=== PATIENT | female | born 1990 | race Caucasian/White ===

== ENCOUNTER 2022-09-30 17:58 | Outpatient (CLI) | payer BC, SELFPAY ==
[2022-10-04 04:34] LABS: FSH 3.1 mIU/mL (***); LH 3.6 mIU/mL (***)
[2022-10-07 10:53] LABS: Testosterone Total 36 ng/dL (2-45)
[2022-10-09 20:05] LABS: Estradiol, Ultrasensitive 117 pg/mL
== END 2022-09-30 17:59 | disposition home or self-care (01) ==
LOC: ANHLAB 18:00
PROVIDERS: PCP Obstetrics & Gynecology; Visit Provider Student in an Organized Health Care Education/Training Program
DX: L68.0 Hirsutism (principal); R30.0 Dysuria
CPT/HCPCS: 36415; 82670; 83001; 83002; 83498; 84403; 84443; 87086

== ENCOUNTER 2023-07-24 15:46 | Outpatient (CLI) | payer BC, SELFPAY ==
--- NOTE | ~2023-07-24 | US_ITS ---
Pelvic ultrasound. Clinical History: First trimester , establish dates and viability Technique: Realtime transabdominal and transvaginal scanning of the pelvis was performed. Color flow Doppler and Doppler spectral analysis were performed. Findings: The uterus is anteverted, and contains a diamniotic, dichorionic intrauterine twin gestatio n. Twin A demonstrates crown-rump length of 2.4 cm, consistent with estimated gestational age of 9 we eks 1 day. heart rate is 149 bpm. Twin B demonstrates crown-rump length of 2.6 cm, consistent w ith estimated gestational age of 9 weeks 3 days, with heart rate of 167 bpm. Small subchronic h emorrhage present measuring 1.5 cm in maximum diameter.. The right ovary is not visualized. No significant right ovarian or adnexal mass is seen. The left ovary measures 3.2 x 2.5 x 2.5 cm. No significant left ovarian or adnexal mass is seen. There is no evidence of free fluid in the cul de sac. Impression: Live, twin intrauterine gestation, as detailed above, with estimated gestational ages of 9 weeks 1 da y and 9 weeks 3 days, with positive cardiac activity. Small subchronic hemorrhage, as noted above. Reviewed, dictated and finalized at location M. IMMER Impression: Live, twin intrauterine gestation, as detailed above, with estimated gestationa l ages of 9 weeks 1 day and 9 weeks 3 days, with positive cardiac activity. Small subchronic hemorrhage, as noted above.
== END 2023-07-24 15:47 ==
PROVIDERS: PCP Student in an Organized Health Care Education/Training Program; Visit Provider Student in an Organized Health Care Education/Training Program
DX: O46.90 Antepartum hemorrhage, unspecified, unspecified trimester (principal); N94.89 Other specified conditions associated with female genital organs and menstrual cycle; Z3A.00 Weeks of gestation of pregnancy not specified
CPT/HCPCS: 76801; 76817

== ENCOUNTER 2023-08-05 11:49 | Outpatient (CLI) | payer BC, SELFPAY ==
[2023-08-05 12:37] LABS: Basophils Percent Auto 0.4 % (0.2-1.2); Eosinophils Absolute Auto 0.1 K/mm3 (0-0.3); Hematocrit 43.8 % (37.0-47.0); Hemoglobin 14.2 g/dL (12.0-15.0); Immature Granulocyte Absolute 0.03 K/mm3 (0.00-0.031); Immature Granulocyte Percent A 0.3 % (0-0.5); Lymphocytes Absolute Auto 2.45 K/mm3 (0.9-3.2); Lymphocytes Percent Auto 22.2 % (18.3-44.2); Mean Corpuscular HGB Conc 32.4 g/dl (32-36); Mean Corpuscular Hemoglobin 31.4 pg (26-34); Mean Corpuscular Volume 96.9 fl (80-100); Monocytes Absolute Auto 0.6 K/mm3 (0.1-0.6); Neutrophils Absolute Auto 7.9 K/mm3 (1.3-6.7); Neutrophils Percent Auto 71.1 % (45.5-73.1); Platelet Count Result 186 k/mm3 (150-375); Red Blood Count 4.52 M/mm3 (4.2-5.4); Red Cell Distribution Width 13.2 % (11.5-14.5)
[2023-08-05 13:30] LABS: HIV 1/2 Ab P24 Ag Result Negative (Negative)
[2023-08-05 14:21] LABS: Hepatitis B Surface Antigen Negative (Negative); Rubella IgG Antibody 19.6 IU/ML
[2023-08-06 12:20] LABS: Rapid Plasma Reagin Non-Reactive (NonReactive)
== END 2023-08-05 11:50 | disposition home or self-care (01) ==
PROVIDERS: PCP Student in an Organized Health Care Education/Training Program; Visit Provider Student in an Organized Health Care Education/Training Program
DX: N94.89 Other specified conditions associated with female genital organs and menstrual cycle (principal)
CPT/HCPCS: 36415; 84702; 85025; 86592; 86644; 86703; 86747; 86762; 86787; 86850; 86900; 86901; 87086; 87340; G0432

== ENCOUNTER 2023-10-31 15:55 | Emergency (ER) | payer OTHER, BC, MEDICAID, SELFPAY ==
--- NOTE | ~2023-10-31 | XR_ITS ---
XR hand LT min 3V 10/31/2023 16:51 INDICATION: Left hand pain PROCEDURE: 3 views left hand COMPARISON: No prior studies for comparison. FINDINGS: Fracture, dislocation or subluxation is not identified. The soft tissues appear within norm al limits. No foreign bodies are identified. IMPRESSION: 1: NO ACUTE BONE OR JOINT ABNORMALITY IDENTIFIED. Reviewed, dictated and finalized at location B.
[2023-10-31 16:16] VITALS: BP 118/75; PULSE 92; RESP 16; TEMP 36.4; O2SAT 100
--- NOTE | 2023-10-31 16:40 | ED.ANIMALBIT ---
HPI - Animal Bite General Chief Complaint: Animal Bite Stated Complaint: dog bite left wrist Time Seen by Provider: 10/31/23 16:28 Source: patient, RN notes reviewed and old records reviewed Mode of arrival: ambulatory Limitations: no limitations History of Present Illness HPI narrative: 33-year-old [facility] complaint dog bite to left wrist. 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 Patient is approximately currently with twins. Patient states that after EMS was called to the scene and they irrigated the wound and applied a dressing. Patient reports she to a local urgent care yesterday and did not receive a wound check or prescription for antibiotics. Patient reports numbness, tingling, and decreased range of motion to her 4th and 5th digits. Patient states she called her OBGYN today and was advised that it was safe for her to have simple x-ray done with lead shield on abdomen and that it was safe for her to take Augmentin. Related Data Home Medications Medication Instructions Recorded Confirmed vits no.126-ferrous fum 1 tablet PO DAILY 07/14/23 10/31/23 28 mg iron-folic acid 800 mcg tablet (Classic ) aspirin 81 mg tablet,delayed 162 mg PO DAILY 10/07/23 10/31/23 release (Adult Low Dose Aspirin) Allergies Allergy/AdvReac Type Severity Reaction Status Date / Time No Known Allergies Allergy Verified 10/31/23 16:12 Review of Systems Review of Systems: All systems reviewed & are unremarkable except as noted in HPI and below Constitutional: Constitutional: Reports as per HPI and Denies fever(s) Eyes: Eyes: Reports no additional eye complaints ENT: Reports system reviewed and no additional complaints, except as documented Cardiovascular: Cardiovascular: Reports no additional cardiovascular complaints, Denies chest pain and Denies dyspnea Respiratory: Respiratory: Reports no additional respiratory complaints, Denies cough and Denies dyspnea Musculoskeletal: Musculoskeletal: Reports no additional musculoskeletal complaints Integumentary/Breasts: Skin/Breast: Reports wounds (dog bite, open wound, left ulnar/volar wrist 1cm) Neurologic: Reports as per HPI, Reports tingling ( left hand 4th and 5th digit) and Reports weakness ( left hand 4th and 5th digit) Psychiatric: Psychiatric: Reports no additional psychiatric complaints PMFSH Past Medical History Medical History Suppression of menses Surgical History Surgical History History of delivery x 2 Family History Family History Grandparent Heart disease Social History Social History Smoking status: Never smoker Alcohol intake: never Substance use: never Living arrangements: other Additional living arrangements comments: children Occupation/Education: occupation Gender identity (if verbalized by the patient): Female Sexual Orientation (if Verbalized by the Patient): Straight or Heterosexual Comments At the time of my signature, I reviewed and agree with the nursing past medical, surgical, social, and family history. There is no relevant family history pertinent to the patient complaint. Exam Const: General: cooperative, healthy appearing, comfortable, no acute distress, alert and well nourished Nutritional Appearance: well nourished Orientation/consciousness: patient oriented x3 Limitations: no limitations HENMT: Head: normal to inspection Ears: external ears normal Face/Nose/Sinus: Normal external nose present, Normal nares present, normal facial exam, No erythema and No edema Face and sinus: normal facial exam, no erythema and no edema Mouth: Yes Nor
[2023-10-31] MEDS: LIDOCAINE HCL 1% LOCAL INJ 2 ML AMPUL 3 ML INFILTRATE (16:46)
== END 2023-10-31 17:16 | disposition home or self-care (01) ==
PROVIDERS: Emergency Provider Nurse Practitioner Family; PCP Family Medicine
DX: O9A.219 Injury, poisoning and certain other consequences of external causes complicating pregnancy, unspecified trimester (principal); S61.512A Laceration without foreign body of left wrist, initial encounter; L08.9 Local infection of the skin and subcutaneous tissue, unspecified; Z3A.00 Weeks of gestation of pregnancy not specified; W54.0XXA Bitten by dog, initial encounter; Z79.82 Long term (current) use of aspirin
CPT/HCPCS: 73130; 99213; G0463

== ENCOUNTER 2023-12-08 12:03 | Outpatient (RCR) | payer BC, OTHER, SELFPAY ==
[2023-12-08 13:30] LABS: Basophils Percent Auto 0.5 % (0.2-1.2); Eosinophils Absolute Auto 0.2 K/mm3 (0-0.3); Eosinophils Percent Auto 2.2 % (0-4.4); Hematocrit 31.5 % (37.0-47.0); Hemoglobin 10.6 g/dL (12.0-15.0); Immature Granulocyte Absolute 0.33 K/mm3 (0.00-0.031); Immature Granulocyte Percent A 3.9 % (0-0.5); Lymphocytes Absolute Auto 1.72 K/mm3 (0.9-3.2); Lymphocytes Percent Auto 20.1 % (18.3-44.2); Mean Corpuscular HGB Conc 33.7 g/dl (32-36); Mean Corpuscular Volume 98.1 fl (80-100); Mean Platelet Volume 10.9 fl (7.4-10.4); Monocytes Absolute Auto 0.4 K/mm3 (0.1-0.6); Neutrophils Absolute Auto 5.9 K/mm3 (1.3-6.7); Neutrophils Percent Auto 68.3 % (45.5-73.1); Platelet Count Result 210 k/mm3 (150-375); Red Blood Count 3.21 M/mm3 (4.2-5.4); Red Cell Distribution Width 14.3 % (11.5-14.5); White Blood Count 8.6 K/mm3 (4.5-10.0)
[2023-12-08 13:41] LABS: Glucose 1 Hour PP 50gm Dose 153 mg/dL
[2023-12-08 14:20] LABS: HIV 1/2 Ab P24 Ag Result Negative (Negative)
[2023-12-11] MEDS: RHO(D) IMMUNE GLOBULIN 300 MCG/2 ML SYRINGE IM (11:23)
== END 2024-03-07 23:59 | disposition home or self-care (01) ==
LOC: ANHLAB 12:03
PROVIDERS: PCP Family Medicine; Visit Provider Obstetrics & Gynecology
DX: Z11.4 Encounter for screening for human immunodeficiency virus [HIV] (principal); Z11.3 Encounter for screening for infections with a predominantly sexual mode of transmission; O36.0190 Maternal care for anti-D [Rh] antibodies, unspecified trimester, not applicable or unspecified; Z3A.00 Weeks of gestation of pregnancy not specified
CPT/HCPCS: 36415; 82947; 85025; 85461; 86703; 86850; 86900; 86901; 90384; 96372; G0432; J2790

== ENCOUNTER 2024-01-15 16:11 | Outpatient (RCR) | payer BC, OTHER, SELFPAY ==
[2024-01-12 17:41] VITALS: BP 135/74; PULSE 114
--- NOTE | ~2024-01-15 | US_ITS ---
EXAMINATION: US OB BPP wo non-stress DATE: 01/12/2024 18:24 INDICATION: twins . TECHNIQUE: Real-time ultrasound of the pelvis was performed. COMPARISON: None. FINDINGS: There are 2 fetuses; both in in vertex presentation, longitudinal lie. The placenta is fundal. heart rate is 162 bpm for baby A and 153 for baby B. Deepest vertical pocket for baby A 4.0 cm. Deep est vertical pocket for baby B 2.0 cm. Biophysical profile performed by the technologist: Baby A: breathing (30 sec sustained breathing in 30 minutes): 2 out of 2. movement (3 gross body movements in 30 minutes: 2 out of 2. tone (one episode of ayqjsax-uyxjurwva-kleacxr limb movement): 2 out of 2. Amniotic fluid pocket (2 cm): 2 out of 2. Total score: 8 out of 8. Baby B: breathing (30 sec sustained breathing in 30 minutes): 2 out of 2. movement (3 gross body movements in 30 minutes: 2 out of 2. tone (one episode of xmiseil-swjaunnbi-zbvoczm limb movement): 2 out of 2. Amniotic fluid pocket (2 cm): 2 out of 2. Total score: 8 out of 8. IMPRESSION: Twin , both in in vertex presentation. Biophysical profile 8 out of 8 for both baby A and baby B. Incidental note of borderline oligohydramnios for baby B. Reviewed, dictated and finalized at location K.
--- NOTE | ~2024-01-15 | US_ITS ---
LIMITED OBSTETRIC ULTRASOUND/biophysical profile Ordering provider: Elli Lazcano MD History: . Twins, SHAR please . Comparison: None. FINDINGS: Twin . baby A on the right and baby B on the left PRESENTATION: Vertex. Longitudinal lie. PLACENTAL LOCATION: Fundal No previa. HEART RATE: 167 baby A, 144 baby B bpm (normal is between 110 to 160 bpm). AMNIOTIC FLUID INDEX: Largest vertical pocket is A: 4.6, B: 5.2 cm. OTHER: Maternal ovaries not visualized. SCORE: breathing movements: 2 movements: 2 tone: 2 Amniotic fluid volume: 2 Total: 8 IMPRESSION: Normal biophysical profile. Reviewed, dictated and finalized at location A. IMPRESSION: Normal biophysical profile.
== END 2024-03-23 13:20 | disposition home or self-care (01) ==
LOC: ANHOBOP 16:11
PROVIDERS: PCP Family Medicine; Visit Provider Student in an Organized Health Care Education/Training Program
DX: O24.419 Gestational diabetes mellitus in pregnancy, unspecified control (principal); O30.003 Twin pregnancy, unspecified number of placenta and unspecified number of amniotic sacs, third trimester; Z3A.34 34 weeks gestation of pregnancy
CPT/HCPCS: 59025; 76819

== ENCOUNTER 2024-01-31 11:08 | Outpatient (CLI) | payer BC, OTHER, SELFPAY ==
[2024-01-31 11:28] LABS: Hematocrit 32.3 % (37.0-47.0); Hemoglobin 10.7 g/dL (12.0-15.0); Mean Corpuscular HGB Conc 33.1 g/dl (32-36); Mean Corpuscular Hemoglobin 31.1 pg (26-34); Mean Corpuscular Volume 93.9 fl (80-100); Mean Platelet Volume 10.9 fl (7.4-10.4); Platelet Count Result 221 k/mm3 (150-375); Red Blood Count 3.44 M/mm3 (4.2-5.4); Red Cell Distribution Width 14.6 % (11.5-14.5); White Blood Count 9.7 K/mm3 (4.5-10.0)
[2024-01-31 12:29] LABS: HIV 1/2 Ab P24 Ag Result Negative (Negative)
[2024-02-02 14:00] LABS: Rapid Plasma Reagin Non-Reactive (NonReactive)
== END 2024-01-31 11:09 | disposition home or self-care (01) ==
LOC: ANHLAB 11:11
PROVIDERS: PCP Family Medicine; Visit Provider Student in an Organized Health Care Education/Training Program
DX: Z01.818 Encounter for other preprocedural examination (principal)
CPT/HCPCS: 36415; 85027; 86592; 86703; 86850; 86900; 86901; G0432

== ENCOUNTER 2024-02-02 05:17 | Inpatient (IN) | payer BC, OTHER, SELFPAY ==
[2024-02-02] VITALS (57 sets, daily range): BP systolic 92–132; BP diastolic 36–80; PULSE 36–114; RESP 12–20; TEMP 36.2–36.9; O2SAT 96–100; BMI 48.4
[2024-02-02] MEDS: LACTATED RINGERS 1,000 ML 125 ML IV CONT ×2 (05:59→06:49)
[2024-02-02] MEDS: ACETAMINOPHEN 500 MG TABLET 1000 MG PO (05:59)
[2024-02-02 06:15] LABS: Glucose Point of Care 127 mg/dl (65-105)
--- NOTE | 2024-02-02 07:08 | PM.IMHP ---
H&P: HPI History of Present Illness Date/Time: 02/02/24 07:08 Chief Complaint: Intrauterine at term Di/Di Twin gestation Gestational diabetes prior Narrative: 33 yo at 37w0d who presents for repeat for twin gestation. Her is complicated by Di/Di Twin gestation, prior x2, and gestational diabetes. Review of Systems Cardiovascular: Cardiovascular: Denies chest pain, Denies leg edema, Denies palpitations, Denies dyspnea and Denies dyspnea on exertion Respiratory: Respiratory: Denies cough, Denies dyspnea and Denies dyspnea on exertion Gastrointestinal: Gastrointestinal: Denies abdominal pain, Denies constipation, Denies diarrhea, Denies nausea and Denies vomiting Genitourinary: Genitourinary: Denies hematuria, Denies urinary frequency, Denies dysuria, Denies pelvic pain, Denies urinary incontinence and Denies vaginal discharge Neurologic: Reports system reviewed and no additional complaints, except as documented Psychiatric: Psychiatric: Reports no additional psychiatric complaints Endocrine: Endocrine: Denies palpitations PMFSH Past Medical History Medical History Abnormal glucose tolerance in Suppression of menses Surgical History Surgical History History of delivery x 2 Family History Family History Grandparent Heart disease Social History Social History Smoking status: Never smoker Alcohol intake: never Substance use: never Living arrangements: other Additional living arrangements comments: children Occupation/Education: occupation Gender identity (if verbalized by the patient): Female Sexual Orientation (if Verbalized by the Patient): Straight or Heterosexual Spiritual care concerns: No Meds Home Medications and Allergies Home Medications Medication Instructions Recorded Confirmed Type vits no.126-ferrous fum 1 tablet PO DAILY 07/14/23 01/28/24 History 28 mg iron-folic acid 800 mcg tablet (Classic ) aspirin 81 mg tablet,delayed 162 mg PO DAILY 10/07/23 01/28/24 History release (Adult Low Dose Aspirin) Allergies Allergy/AdvReac Type Severity Reaction Status Date / Time No Known Allergies Allergy Verified 01/26/24 17:07 Vital Signs Vital Signs - 24 hr 02/02/24 05:53 02/02/24 06:00 02/02/24 06:15 Pulse Rate 114 H 104 H 108 H Blood Pressure 125/70 126/71 132/80 02/02/24 06:30 Pulse Rate 95 Blood Pressure 129/61 Exam Const: General: no acute distress Eyes: EOM: EOMs intact bilaterally Neck: Neck: supple Thyroid: thyroid normal Chest: Breast/axilla inspection: normal inspection of the breasts Breast/axilla palpation: normal palpation of the breasts, normal palpation of the axillae and no axillary lymphadenopathy Resp: Effort & Inspection: normal respiratory effort Auscultation: clear to auscultation bilaterally Cardio: Rate: regular rate Rhythm: regular rhythm GI: Inspection: non-distended and other (Gravid) GI Palp: Yes Soft to palpation, No Tenderness to palpation present (GI) and No Guarding due to palpation present (GI) Auscultation: normal bowel sounds : Speculum Exam - Vagina: No vaginal bleeding OB/external & speculum: external exam normal; No vaginal bleeding Skin: General skin exam: normal color and no rashes or lesions noted Neuro: Cognition (Neuro): normal cognition Speech: normal speech Extrem: General: normal to inspection Psych: Mental Status: mental status grossly normal Affect: normal affect Assessment and Plan Assessment and plan (1) Supervision of high risk , unspecified, third trimester: Code(s): O09.93 - Supervision of high risk , unspecified, third trimester
[2024-02-02] MEDS: FAMOTIDINE 20 MG/2 ML VIAL IV PUSH (07:14)
[2024-02-02] MEDS: ONDANSETRON INJ 4 MG/2 ML VIAL IV PUSH ×2 (07:15→12:20)
--- NOTE | 2024-02-02 07:17 | WPDANESEPPF ---
Anes - Initial Pre Proc Eval Procedure: Operation Date: 02/02/24 07:30 Proposed Procedures p Repeat Section - Rosales Negron MD Date/Time: 02/02/24 07:17 Surgeon: Rosales Negron MD Pre Op Diagnosis: Patient Data Age: 33 Gender: F Height: 1.63 m Weight: 128 kg Last Vital Signs Pulse 95 02/02/24 06:30 BP 129/61 02/02/24 06:30 Allergies Allergy/AdvReac Type Severity Reaction Status Date / Time No Known Allergies Allergy Verified 01/26/24 17:07 Home Medications Medication Instructions Recorded Confirmed Type vits no.126-ferrous fum 1 tablet PO DAILY 07/14/23 01/28/24 History 28 mg iron-folic acid 800 mcg tablet (Classic ) aspirin 81 mg tablet,delayed 162 mg PO DAILY 10/07/23 01/28/24 History release (Adult Low Dose Aspirin) Laboratory Tests 02/02/24 05:58 POC Capillary Glucose 127 H mg/dl (65-105) Patient hx anesthesia problems: none Family hx anesthesia problems: none Results Review: All pre-operative results and documents have been reviewed as part of the pre-operative evaluation. [facility] Past Medical History Medical History Abnormal glucose tolerance in Suppression of menses Surgical History Surgical History History of delivery x 2 Family History Family History Grandparent Heart disease Social History Social History Smoking status: Never smoker Alcohol intake: never Substance use: never Living arrangements: other Additional living arrangements comments: children Occupation/Education: occupation Gender identity (if verbalized by the patient): Female Sexual Orientation (if Verbalized by the Patient): Straight or Heterosexual Spiritual care concerns: No Anes - Eval Final PreProcedure Day of Procedure 02/02/24 07:17 Patient weight: morbidly obese Heart: regular rate and rhythm Lungs: clear to auscultation Airway: Mallampati scale class 1 Neurological: alert and oriented Last oral intake: >/= 8 hours ASA classification: III Emergent: no Anesthetic plan: proceed Anesthesia type and monitoring: regional spinal and standard monitoring Results Review: All pre-operative results and documents have been reviewed as part of the pre-operative evaluation. Informed Consent: The patient's anesthetic plan and its attendant risks and benefits were discussed with the patient/family/POA. Questions were solicited and answers provided to the satisfaction of the patient/family/POA.
--- NOTE | 2024-02-02 07:21 | WPDHPUPDATE1 ---
History and Physical Update Update Date/Time: 02/02/24 07:21 History and Physical has been reviewed, including an updated exam of the patient. There are NO changes in the patient's condition. Risks, benefits, and alternatives have been discussed and questions answered. Patient agrees to proceed with procedure.
[2024-02-02] MEDS: ceFAZolin 3 GM/D5W 100 ML 100 ML IVPB (07:30)
--- NOTE | 2024-02-02 08:34 | W.PM.OBCSD ---
OB - Delivery Note Procedure Delivery date: 02/02/24 Pre-op diagnosis: Gestational Diabetes, Previous Delivery and Other (Twin gestation) Post-op Diagnosis: Same Induction method: None Delivery monitor: External FHT Prior to decision for section, ACOG/SM labor guidelines were considered and discussed with the patient and staff. Decision made to proceed with the section.: Yes Procedure Performed: Repeat Secondary branch: low cervical, transverse Surgeon: Rosales Negron MD Anesthesia type: Spinal Description of Procedure/Findings: The patient was taken to the operating room where epidural anesthesia was found to be adequate. She was then prepped and draped in the usual sterile fashion in the dorsal supine position with a leftward tilt. A Pfannenstiel skin incision was then made with the scalpel and carried through to the underlying layer of fascia. The fascia was then incised in the midline and the incision extended laterally with the Jiménez scissors. The superior aspect of the fascia was then grasped with the Arcenio clamps, elevated, and the underlying rectus muscles dissected off bluntly and sharply. Attention was then turned to the inferior aspect of this incision which, in a similar fashion, was grasped, tented up with the Arcenio clamps, and the rectus muscles dissected off both bluntly and sharply. The rectus muscles were then in the midline, and the peritoneum identified, tented up, and entered sharply with the Metzenbaum scissors. The peritoneal incision was then extended superiorly and inferiorly with good visualization of the bladder. A Mobius ring retractor was placed for better visualization. The lower uterine segment was then incised in a low, transverse fashion with the scalpel. The uterine incision was then extended bluntly . Amniotomy was performed and infant A's head was delivered through the hysterotomy. The remainder of the infant was delivered atraumatically. The cord was clamped and cut. The infant was noted to have good tone, grimace and cry on delivery. The was handed off to the waiting pediatricians (staff). Cord gasses were sent. B's head was noted at the hysterotomy. Amniotomy was performed and B's head was delivered atraumatically. The remainder of the was delivered atraumatically. The infant was noted to have good tone, grimace and cry on delivery. The was handed off to the waiting pediatricians (staff). Cord gasses were sent. The placentas were then removed manually. The uterus was kept in situ. The uterus was cleared of all clots and debris. The uterine incision was repaired with 0 monocryl in a running fashion. The Mobius ring retractor was removed from the abdomen. Hemaderm powder was placed on the hysterotomy to ensure hemostasis. The uterus was then reinspected to ensure hemostasis as were all subfascial tissues. The peritoneum was re-approximated with 3-0 vicryl in a running fashion. The fascia was reapproximated with 0 vicryl in a running fashion. The subcutaneous tissue was copiously irrigated with saline. The subcutaneous tissue was reapproximated using 3-0 Vicryl in a running fashion. The skin was closed with 4-0 vicryl. The patient tolerated the procedure well. Sponge, lap and needle counts were correct times three. The patient was taken to the recovery room in stable condition. Specimen: Yes (Placenta x 2) Estimated Blood Loss: 645 Drains: No Packing: No Pathology: None sent Complications: No immediate complications Condition: Stable Disposition: Floor [place] Baby Date of : 02/02/24 Weeks of gestation at delivery: 37 gender: Female presentation: vertex Placenta delivery description: Manual Removal Cord Vessel Description: 3 Vessels score one minute: 9 score five minutes: 9 Twins 1: Date of : 02/02/24 Weeks of gestation at delivery: 37 Infant gender: Male
[2024-02-02] MEDS: OXYTOCIN 30 UNITS/NS 500 ML 30 UNITS/500 ML BAG 125 UNITS IV CONT (09:35)
--- NOTE | 2024-02-02 10:55 | PC.NURSE ---
Patient transferred to post room #277 via stretcher. Support person present. Oriented to unit, room, information board, rooming in, admission packet and security measures. Patient verbalizes understanding.
[2024-02-02] MEDS: DEXTROSE 5%/0.45% SOD CHL 1,000 ML 125 ML IV CONT (14:02)
[2024-02-02] MEDS: LIDOCAINE 5% PATCH 1 PATCH TRANSDERM (14:05)
[2024-02-02] MEDS: KETOROLAC 15 MG/ML VIAL (*BKC) IV PUSH ×2 (14:05→21:18)
[2024-02-02] MEDS: ACETAMINOPHEN 325 MG TABLET 650 MG PO ×2 (14:15→21:19)
[2024-02-02] MEDS: SIMETHICONE 80 MG TAB.CHEW PO ×2 (14:15→21:19)
[2024-02-02] MEDS: DOCUSATE SODIUM 100 MG CAPSULE PO (14:15)
[2024-02-03] MEDS: DEXTROSE 5%/0.45% SOD CHL 1,000 ML 125 ML IV CONT (00:30)
[2024-02-03] MEDS: KETOROLAC 15 MG/ML VIAL (*BKC) IV PUSH ×2 (03:13→09:03)
[2024-02-03] MEDS: ACETAMINOPHEN 325 MG TABLET 650 MG PO ×4 (03:13→21:21)
[2024-02-03 04:27] LABS: Basophils Percent Auto 0.4 % (0.2-1.2); Eosinophils Absolute Auto 0.1 K/mm3 (0-0.3); Eosinophils Percent Auto 1.5 % (0-4.4); Hematocrit 26.8 % (37.0-47.0); Hemoglobin 8.6 g/dL (12.0-15.0); Immature Granulocyte Absolute 0.18 K/mm3 (0.00-0.031); Immature Granulocyte Percent A 1.9 % (0-0.5); Lymphocytes Absolute Auto 1.98 K/mm3 (0.9-3.2); Lymphocytes Percent Auto 20.8 % (18.3-44.2); Mean Corpuscular HGB Conc 32.1 g/dl (32-36); Mean Corpuscular Volume 96.8 fl (80-100); Mean Platelet Volume 11.8 fl (7.4-10.4); Monocytes Percent Auto 10.6 % (2.6-8.5); Neutrophils Absolute Auto 6.2 K/mm3 (1.3-6.7); Neutrophils Percent Auto 64.8 % (45.5-73.1); Platelet Count Result 216 k/mm3 (150-375); Red Blood Count 2.77 M/mm3 (4.2-5.4); Red Cell Distribution Width 14.7 % (11.5-14.5); White Blood Count 9.5 K/mm3 (4.5-10.0)
[2024-02-03 07:30] VITALS: BP 118/53; PULSE 79; RESP 16; TEMP 36.5; O2SAT 99
--- NOTE | 2024-02-03 07:32 | WPDANLDPN2 ---
Anes-Prog Note L&D Date/Time: 02/03/24 07:32 Comfortable throughout: section Neuraxial method: spinal Epidural/Spinal procedure site: tender Neuro status: Neuro function grossly intact. Cardiovascular status: normal Respiratory status: normal Airway patency: baseline Mental status: baseline Post-Op hydration status: normal Vital Signs: Last Vital Signs Temp 36.9 C 02/02/24 23:17 Pulse 58 L 02/02/24 23:17 Resp 12 02/02/24 23:17 BP 120/70 02/02/24 23:17 Pulse Ox 100 02/02/24 23:17 O2 Del Method Room Air 02/02/24 10:41 Pain score (VAS): 4/10 I/O: Intake & Output 02/02/24 02/02/24 02/03/24 15:59 23:59 07:59 Intake Total 500 1500 618.8 Output Total 0071 679 7502 Balance -670 680 -781.2 Post-procedural complaints: pruritis mild, no treatment Patient feedback: Patient satisfied with anesthetic care.
--- NOTE | 2024-02-03 07:33 | WPDANLDNPN2 ---
Anes-Prog Note L&D-Neuraxial Date/Time: 02/03/24 07:33 Neuraxial medications: intrathecal PF morphine Opiod-related complaints: pruritis mild, no treatment Patient feedback: Patient satisfied with post-operative pain management.
--- NOTE | 2024-02-03 07:47 | P.PNOB_ITS ---
OB - PN: Subj Subjective Date/time seen: 02/03/24 07:47 Patient comments: no complaints, pain well controlled, tolerating diet and flatus present OB - PN: Obj Data Labs 02/03/24 03:31 Labs: Laboratory Results - last 24 hr 02/03/24 03:31 WBC 9.5 RBC 2.77 L Hgb 8.6 L Hct 26.8 L MCV 96.8 MCH 31.0 MCHC 32.1 RDW 14.7 H Plt Count 216 MPV 11.8 H Immature Gran % (Auto) 1.9 H Neut % (Auto) 64.8 Lymph % (Auto) 20.8 [place] % (Auto) 10.6 H Eos % (Auto) 1.5 Baso % (Auto) 0.4 Lymph # (Auto) 1.98 [place] # (Auto) 1.0 H Eos # (Auto) 0.1 Baso # (Auto) 0.0 Abs Immat Gran (auto) 0.18 H Absolute Neuts (auto) 6.2 Absolute Nucleated RBC 0.000 Nucleated RBC % 0.0 Blood Type O Negative Antibody Screen Negative Screen Negative Baby's Blood Type O pos Baby's BARRY Negative Doses of RhIg Required 1 OB - PN A/P Plan day: 1 Plan: routine care Comments: patient doing well H/H 8.01/27, pt is fatigued. will continue iron supplementation. Repeat CBC in AM afebrile, VSS incision covered with SHERI dressing. Small areas of saturation circled on bandage terrazas removed, voiding spontaneously baby boy is still in nursery for blood sugars. Patient desires circumcision. risks, benefits, alternatives discussed. will plan for circumcision tomorrow continue routine post op care Time Spent With Patient Time: Total time spent is greater than 50% in coordination of care (as documented) at patient's floor/unit and/or counseling patient: Time with patient: less than 15 minutes Review of Systems Constitutional: Constitutional: Reports no additional constitutional complaints Cardiovascular: Cardiovascular: Reports no additional cardiovascular complaints Respiratory: Respiratory: Reports no additional respiratory complaints Gastrointestinal: Gastrointestinal: Reports no additional gastrointestinal complaints Genitourinary: Genitourinary: Reports no additional female genitourinary complaints Exam Const: General: comfortable and no acute distress Resp: Effort & Inspection: normal respiratory effort Auscultation: clear to auscultation bilaterally Cardio: Rate: regular rate GI: GI Palp: Yes Soft to palpation, Yes Tenderness to palpation present (GI) (around incision ) and No Guarding due to palpation present (GI) Auscultation: normal bowel sounds Other: incision C/D/I, covered with Dermabond Psych: Appearance: grossly normal Mental Status: mental status grossly normal Affect: normal affect
--- NOTE | 2024-02-03 08:45 | PC.NURSE ---
Introductions were made, then consulted with patient to assess needs related to . Mother states infant has been very sleepy and not much. Patient has a pump. Encouraged regular pumping if is not effectively feeding at the breast. Reviewed attempting at breast, pumping and bottle feeding. Feeding plan initiated by night RN. Patient instructed to call out today for help and a latch check. Parents voiced understanding of information, demonstrated learning and will call if there is a request for assistance. Reported to the Primary RN.
[2024-02-03] MEDS: POLYSACCHARIDE IRON COMPLEX 150 MG CAPSULE PO ×2 (09:02→16:46)
[2024-02-03] MEDS: MULTIVIT/MIN/PREN/FOL AC/IRON TABLET 1 TAB PO (09:02)
[2024-02-03] MEDS: SIMETHICONE 80 MG TAB.CHEW PO ×3 (09:03→16:46)
[2024-02-03] MEDS: DOCUSATE SODIUM 100 MG CAPSULE PO ×2 (09:03→16:46)
[2024-02-03] MEDS: RHO(D) IMMUNE GLOBULIN 300 MCG/2 ML SYRINGE IM (11:19)
[2024-02-03] MEDS: HYDROcodone/acetaminophen (*CRX) 5-325 MG TABLET 1 TAB PO (13:19)
[2024-02-03] MEDS: IBUPROFEN 600 MG TABLET PO ×2 (15:09→21:21)
[2024-02-03 18:55] VITALS: BP 108/54; PULSE 64; RESP 12; TEMP 36.8; O2SAT 99
[2024-02-04] VITALS (10 sets, daily range): BP systolic 109–147; BP diastolic 52–88; PULSE 55–87; RESP 16–20; TEMP 36.6–37.7; O2SAT 97–100
[2024-02-04] MEDS: ACETAMINOPHEN 325 MG TABLET 650 MG PO ×2 (05:16→12:10)
[2024-02-04] MEDS: IBUPROFEN 600 MG TABLET PO ×2 (05:16→12:10)
[2024-02-04 05:21] LABS: Mean Corpuscular Hemoglobin 31.7 pg (26-34); Mean Platelet Volume 11.7 fl (7.4-10.4); Platelet Count Result 274 k/mm3 (150-375); Red Blood Count 2.02 M/mm3 (4.2-5.4); Red Cell Distribution Width 14.8 % (11.5-14.5); White Blood Count 11.5 K/mm3 (4.5-10.0)
[2024-02-04 05:27] LABS: Hemoglobin 6.4 g/dL (12.0-15.0)
[2024-02-04 05:28] LABS: Hematocrit 19.4 % (37.0-47.0)
[2024-02-04] MEDS: SIMETHICONE 80 MG TAB.CHEW PO ×2 (07:06→12:10)
[2024-02-04] MEDS: MULTIVIT/MIN/PREN/FOL AC/IRON TABLET 1 TAB PO (07:06)
[2024-02-04] MEDS: DOCUSATE SODIUM 100 MG CAPSULE PO (07:06)
[2024-02-04] MEDS: POLYSACCHARIDE IRON COMPLEX 150 MG CAPSULE PO (07:14)
--- NOTE | 2024-02-04 07:55 | PM.OBPNVD ---
OB - PN: Subj Subjective Date/time seen: 02/04/24 07:55 Patient comments: no complaints, pain well controlled, tolerating diet and flatus present OB - PN: Obj Data Labs 02/04/24 03:13 Labs: Laboratory Results - last 24 hr 02/03/24 02/04/24 03:31 03:13 WBC 11.5 H RBC 2.02 L Hgb 6.4 L* Hct 19.4 L* MCV 96.0 MCH 31.7 MCHC 33.0 RDW 14.8 H Plt Count 274 MPV 11.7 H Blood Type O Negative Antibody Screen Negative Screen Negative Baby's Blood Type O pos Baby's BARRY Negative Doses of RhIg Required 1 OB - PN A/P Plan day: 2 Plan: routine care and discharge home Comments: patient doing well H/H 6.11/20. patient reports fatigue. Recommended blood transfusion. Risks and benefits discussed. Will order 2 units pRBC afebrile, VSS incision covered with SHERI dressing terrazas removed, voiding spontaneously plan for d/c home after transfusion Time Spent With Patient Time: Total time spent is greater than 50% in coordination of care (as documented) at patient's floor/unit and/or counseling patient: Time with patient: less than 15 minutes Review of Systems Constitutional: Constitutional: Reports no additional constitutional complaints Cardiovascular: Cardiovascular: Reports no additional cardiovascular complaints Respiratory: Respiratory: Reports no additional respiratory complaints Gastrointestinal: Gastrointestinal: Reports no additional gastrointestinal complaints Genitourinary: Genitourinary: Reports no additional female genitourinary complaints Exam Const: General: comfortable and no acute distress Resp: Effort & Inspection: normal respiratory effort Auscultation: clear to auscultation bilaterally Cardio: Rate: regular rate GI: GI Palp: Yes Soft to palpation, Yes Tenderness to palpation present (GI) (around incision ) and No Guarding due to palpation present (GI) Auscultation: normal bowel sounds Other: incision C/D/I, covered with Dermabond Psych: Appearance: grossly normal Mental Status: mental status grossly normal Affect: normal affect
--- NOTE | 2024-02-04 07:57 | PM.OBDSVD ---
DS: Admitting Diagnosis Discharge Date 02/04/24 Admitting Diagnosis di/di twin gestation gestational diabetes prior DS: Discharge Diagnosis Discharge Diagnosis (1) delivery delivered: Code(s): O82 - Encounter for delivery without indication Status: Acute OB - DS: Summary OB Procedures : None OB Procedures Intrapartum: low cervical, transverse OB Procedures: : Transfusion Peripartum Data Delivery Method: Section Procedures: Procedures Operation Date: 02/02/24 07:30 Actual Procedure Side Surgeon p Repeat Section Rosales Negron MD complications: transfusion Status at Discharge Functional status at discharge: independent ambulation Overall status at discharge: patient is progressing back to baseline Time Spent with Patient Time attestation: Total time spent providing and/or coordinating discharge services: Time spent: Less than 30 minutes Exam Const: General: comfortable and no acute distress Resp: Effort & Inspection: normal respiratory effort Auscultation: clear to auscultation bilaterally Cardio: Rate: regular rate GI: Inspection: non-distended GI Palp: Yes Soft to palpation, No Firmness to palpation present (GI), Yes Tenderness to palpation present (GI) (mild tenderness over incision ) and No Guarding due to palpation present (GI) Auscultation: normal bowel sounds Psych: Appearance: grossly normal Mental Status: mental status grossly normal DS: Data Data Completed and Pending Pending studies at discharge: Pending at discharge 02/02/24 08:01 Surgical [PTH] Routine Labs on day of discharge: Labs from last 24 hours 02/04/24 02/03/24 03:13 03:31 WBC 11.5 H RBC 2.02 L Hgb 6.4 L* Hct 19.4 L* MCV 96.0 MCH 31.7 MCHC 33.0 RDW 14.8 H Plt Count 274 MPV 11.7 H Blood Type O Negative Antibody Screen Negative Screen Negative Baby's Blood Type O pos Baby's BARRY Negative Doses of RhIg Required 1 Discharge Plan Discharge Discharging Clinician: Rosales Negron Patient Disposition: Home, Self-Care Activity: may shower Diet: gestational diabetic Wound Care Instructions: keep dressing dry Patient Instructions: Antibiotic Form, (DC) Stand Alone Forms: General Discharge Information Follow-up/Referrals: Rosales Negron MD [Physician] - 1 Week (incision check) Discharge Medications: New oxycodone-acetaminophen 5-325 mg tablet 1 tablet PO Q6H PRN (Reason: pain) Qty: 28 0RF docusate sodium [Dulcolax Stool Softener (dss)] 100 mg capsule 100 mg PO DAILY Qty: 30 0RF ferrous sulfate 325 mg (65 mg iron) tablet 325 mg PO DAILY Qty: 90 0RF ibuprofen 600 mg tablet 600 mg PO Q6H PRN (Reason: pain) Qty: 30 0RF Continued Classic 28 mg iron- 800 mcg tablet 1 tablet PO DAILY aspirin [Adult Low Dose Aspirin] 81 mg tablet,delayed release (DR/EC) 162 mg PO DAILY Date of admission: 02/02/24 05:17 Primary Care Provider: Demarco Bennett Admitting Provider: Rosales Negron Attending physician on admission: Rosales Negron Condition: Stable
[2024-02-04] MEDS: SODIUM CHLORIDE 0.9% IV 250 ML 30 ML IV CONT (08:24)
[2024-02-04] MEDS: HYDROcodone/acetaminophen (*CRX) 5-325 MG TABLET 1 TAB PO (08:28)
--- NOTE | 2024-02-04 14:11 | PC.NURSE ---
Patient declined MMR vaccine. Expressed that vaccine is highly encouraged and explained risks and provided patient a hand out.
--- NOTE | 2024-02-04 14:56 | PC.NURSE ---
0845. Consulted with patient to assess needs related to . Discussed mothers current plan of 15-15-15 feeding plan. She reported wanted to breastfeed both infants once she get back home. We reviewed working with the infant, supporting breast, protecting her nipples with an optimal deep latch, good positioning, and good hand washing. Encouraged understanding the benefits of skin to skin, responding to feeding cues, frequencies of feeding 8-12 times in 24 hours (approximately 2-3 hours), duration of feedings, milk production, intake/output feeding sheet and signs of adequate intake encouraging swallowing at the breast. Reviewed positioning and alignment, supporting breast, off-centered (asymmetrical latch) and leading with the chin with big, open, wide gape. Mother reported infant just fed and will call for help with latch for next feed if need be. Education given to the mother of how to visualize the suckling (with good rocking jaw motion) swallows (dropping of the lower jaw) and how to listen for drinking at the breast (the ka sound). Nipple care reviewed with optimal latch, good positioning and using clean hands when touching her breast. Resources used to facilitate learning were used from the visual handouts &mom and baby guide. Mother voiced understanding of the education shared, to call for assistance if the does not latch or if there is discomfort with . Reported to the Primary RN.
--- NOTE | 2024-02-04 16:50 | PC.NURSE ---
Made patient and significant other aware that car seat will on 02/26/24. They verbalized understanding.
[2024-02-06 11:32] VITALS: BP 126/83; PULSE 50; RESP 18; TEMP 36.8; O2SAT 100
== END 2024-02-04 16:55 | disposition home or self-care (01) | DRG 788 ==
LOC: ANHLDR 05:25 → ANHOB2 10:58
PROVIDERS: Admitting Provider Student in an Organized Health Care Education/Training Program; PCP Family Medicine; Visit Provider Student in an Organized Health Care Education/Training Program
PROC: 10D00Z1 Extraction of Products of Conception, Low, Open Approach (ICD-10-PCS; CPT 59514; principal; 2024-02-02 07:30)
DX: O30.043 Twin pregnancy, dichorionic/diamniotic, third trimester (principal); Z37.2 Twins, both liveborn; Z3A.37 37 weeks gestation of pregnancy; O34.211 Maternal care for low transverse scar from previous cesarean delivery; O24.429 Gestational diabetes mellitus in childbirth, unspecified control
CPT/HCPCS: 36415; 36430; 82948; 85025; 85027; 85461; 86850; 86900; 86901; 86923; 88307; 90384; A9270; J0690; J1885; J2274; J2371; J2405; J2590; J2790; J7050; J7120; P9016

== ENCOUNTER 2024-10-18 13:24 | Outpatient (CLI) | payer OTHER, SELFPAY ==
--- OUTSIDE RECORDS SUMMARY | 2024-10-18 15:57 | XMS_ITS | CONTINUITY OF CARE DOCUMENT ---
Author Name [email or web address] Address Unknown Organization [facility] Address [address] [place] [address] Phone [phone] Care Team Providers Care Front Desk Lead Name Role Phone Brandon Barton MD Unavailable Brandon Barton MD Unavailable REHAN KUO MD Unavailable PROBLEMS Condition Status Date Provider Notes Dyspnea on exertion active Jaden Hollingsworth Palpitation active Juan Powell PVC's active Juan Powell Cardiomyopathy active Geovani Patel ENCOUNTERS Date Type Provider Location Encounter Diag nosis - In-person encounter Office Visit Brandon Barton MD [facility] - In-person encounter Office Visit Brandon Barton MD [facility] - In-person encounter Office Visit Brandon Barton MD [facility] Cardiomyopathy - In-person encounter Office Visit Brandon Barton MD [facility] PalpitationPVC's VITAL SIGNS Date Observation Value Provider Body Mass Index (Ratio) 50.80 kg/m2 Reji Patel oxygen saturation, oximetry 98 % Taiwo Ocampo blood pressure, diastolic 81 mm[Hg] To nsbertha Ocampo blood pressure, systolic 124 mm[Hg] Ton toribio Ocampo respiratory rate E&M 16 /min Taiwo Ocampo pulse rate 71 /min Tonsha Ocampo weight E&M 296 [lb_av] Tonsha Ocampo height E&M 64 [in_i] Tonsha Ocampo Body Mass Index (Ratio) 51.49 kg/m2 Jord en Jorge oxygen saturation, oximetry 96 % Ivanna Acevedo pulse rate 99 /min Ivannaulysses Anton l respiratory rate E&M 16 /min Ivannaulysses Acevedo blood pressure, cuff size regular Cy angel Acevedo blood pressure, diastolic 80 mm[Hg] Cy ntgabriela Acevedo blood pressure, systolic 130 mm[Hg] Kathie ulysses Acevedo weight E&M 300 [lb_av] Ivanna Powellbel l height E&M 64 [in_i] Ivanna Powellbel l Body Mass Index (Ratio) 42.56 kg/m2 Jord ralph Jorge blood pressure, cuff size regular Cy angel Acevedo blood pressure, diastolic 80 mm[Hg] Cy angel Acevedo blood pressure, systolic 124 mm[Hg] Kathie ulysses Acevedo oxygen saturation, oximetry 96 % Ivanna Acevedo respiratory rate E&M 18 /min Ivannaulysses Acevedo pulse rate 92 /min Ivanna Anton l weight E&M 248 [lb_av] Ivanna Andrebel l height E&M 64 [in_i] Ivanna Andrebel l blood pressure, diastolic 80 mm[Hg] Cy anegl Acevedo blood pressure, systolic 124 mm[Hg] Kathie ulysses Acevedo Body Mass Index (Ratio) 43.77 kg/m2 Estevan Powell blood pressure, diastolic 60 mm[Hg] Ma rsha O'Casa blood pressure, systolic 130 mm[Hg] Mar sha O'Casa blood pressure, resting No Greybull stone O'Casa respiratory rate E&M 16 /min Maia Vincent pulse rate 115 /min Maia Vincent oxygen saturation, oximetry 96 % Maia Vincent weight E&M 255 [lb_av] Maia OYoung height E&M 64 [in_i] Maia Vincent ALLERGIES Allergy Name Onset Date Reaction Criticality Status SHRIMP Low Criticality active CATS Low Criticality active RESULTS Date Observation Value Provider Reference Range Interpretation Location 1 free thyroxine index 1.5 [facility] 1.2-4.9 1 triiodothyronine resin uptake 23 % [facility] 24-39 Low 1 thyroxine, serum, total 6.6 ug/dL [facility] 4.5-12.0 1 thyroid stimulating hormone, serum 3.250 u[IU]/mL [facility] 0.450-4.500 1 lipoprotein, beta, serum, point, quantitative, calculated 124 mg/dL [facility] 0-99 High 1 very low density lipoproteins 36 mg/dL [facility] 5-40 1 HDL cholesterol, serum 44 mg/dL [facility] >39 1 triglyceride, serum, random 182 mg/dL [facility] 0-149 High 1 cholesterol, serum 204 mg/dL [facility] 100-199 High 1 basophil count, absolute 0.1 x10E3/uL [facility] 0.0-0.2 1 Eosinophil Absolute Count 0.3 X10E3/UL [facility] 0.0-0.4 1 monocyte count, blood, automated 0.7 X10E3/UL [facility] 0.1-0.9 1 lymphocyte count, blood, automated 3.0 X10E3/UL [facility] 0.7-3.1 1 Absolute Neutrophils 3.5 X10E3/UL [facility] 1.4-7.0 1 basophils as percent of blood leukocytes 1 % [facility] Not Estab. 1 eosinophils as percent of blood leukocytes 4 % [facility] Not Estab. 1 monocytes as percent of blood leukocytes 9 % [facility] Not Estab. 1 lymphocytes as percent of blood leukocytes 40 % [facility] Not Estab. 1 neutrophils as percent of blood leukocytes 46 % [facility] Not Estab. 1 platelet count 233 X10E3/UL [facility] 642-942 2458/02/0 1 red blood cell distribution width 12.2 % [facility] 11.7-15.4 1 mean corpuscular hemoglobin concentration, RBC 33.0 G/DL [facility] 31.5-35.7 1 mean corpuscular hemoglobin, RBC 31.0 pg [facility] 26.6-33.0 1 mean corpuscular volume, RBC 94 fL [facility] 79-97 1 hematocrit, blood 43.6 % [facility] 34.0-46.6 1 hemoglobin, blood 14.4 g/dL [facility] 11.1-15.9 1 erythrocyte (RBC) count 4.65 X10E6/UL [facility] 3.77-5.28 1 leukocyte count, blood 7.5 X10E3/UL [facility] 3.4-10.8 1 alanine aminotransferase (SGPT), serum 27 1/L [facility] 0-32 1 aspartate aminotransferase (SGOT), serum 28 1/L [facility] 0-40 1 alkaline phosphatase, serum 60 1/L [facility] 39-117 1 bilirubin, serum, total 0.4 mg/dL [facility] 0.0-1.2 1 albumin/globulin ratio, serum 2.0 [facility] 1.2-2.2 1 globulin, serum 2.5 [facility] 1.5-4.5 1 albumin, serum 4.9 g/dL [facility] 3.9-5.0 1 protein, total, serum 7.4 g/dL [facility] 6.0-8.5 1 calcium, serum 9.6 mg/dL [facility] 8.7-10.2 1 carbon dioxide, venous blood 23 mmol/L [facility] 20-29 1 chloride, serum 99 mmol/L [facility] 96-106 1 potassium, serum 4.4 mmol/L [facility] 3.5-5.2 1 sodium, serum 140 mmol/L [facility] 723-397 4974/02/0 1 urea nitrogen/creatinine ratio, serum 12 [facility] 9-23 1 eGFR if 110 mL/min/{1 .73_m2} [facility] >59 1 eGFR if not 96 mL/min/{1 .73_m2} [facility] >59 1 creatinine, serum 0.83 mg/dL [facility] 0.57-1.00 1 urea nitrogen, blood 10 mg/dL [facility] 6-20 1 blood glucose, random 95 mg/dL [facility] 65-99 2 magnesium, serum 2.1 mg/dL [facility] 1.6-2.3 2 free thyroxine index 1.6 [facility] 1.2-4.9 2 triiodothyronine resin uptake 25 % [facility] 24-39 2 thyroxine, serum, total 6.3 ug/dL [facility] 4.5-12.0 2 thyroid stimulating hormone, serum 0.943 u[IU]/mL [facility] 0.450-4.500 2 basophil count, absolute 0.0 x10E3/uL [facility] 0.0-0.2 2 Eosinophil Absolute Count 0.2 X10E3/UL [facility] 0.0-0.4 2 monocyte count, blood, automated 0.5 X10E3/UL [facility] 0.1-0.9 2 lymphocyte count, blood, automated 2.1 X10E3/UL [facility] 0.7-3.1 2 Absolute Neutrophils 3.8 X10E3/UL [facility] 1.4-7.0 2 basophils as percent of blood leukocytes 0 % [facility] Not Estab. 2 eosinophils as percent of blood leukocytes 3 % [facility] Not Estab. 2 monocytes as percent of blood leukocytes 7 % [facility] Not Estab. 2 lymphocytes as percent of blood leukocytes 32 % [facility] Not Estab. 2 neutrophils as percent of blood leukocytes 58 % [facility] Not Estab. 2 platelet count 193 X10E3/UL [facility] 523-102 4852/06/2 2 red blood cell distribution width 12.8 % [facility] 12.3-15.4 2 mean corpuscular hemoglobin concentration, RBC 34.1 G/DL [facility] 31.5-35.7 2 mean corpuscular hemoglobin, RBC 32.0 pg [facility] 26.6-33.0 2 mean corpuscular volume, RBC 94 fL [facility] 79-97 2 hematocrit, blood 41.6 % [facility] 34.0-46.6 2 hemoglobin, blood 14.2 g/dL [facility] 11.1-15.9 2 erythrocyte (RBC) count 4.44 X10E6/UL [facility] 3.77-5.28 2 leukocyte count, blood 6.6 X10E3/UL [facility] 3.4-10.8 2 alanine aminotransferase (SGPT), serum 14 1/L [facility] 0-32 2 aspartate aminotransferase (SGOT), serum 17 1/L [facility] 0-40 2 alkaline phosphatase, serum 50 1/L [facility] 39-117 2 bilirubin, serum, total 0.4 mg/dL [facility] 0.0-1.2 2 albumin/globulin ratio, serum 1.7 [facility] 1.2-2.2 2 globulin, serum 2.5 [facility] 1.5-4.5 2 albumin, serum 4.3 g/dL [facility] 3.5-5.5 2 protein, total, serum 6.8 g/dL [facility] 6.0-8.5 2 calcium, serum 9.3 mg/dL [facility] 8.7-10.2 2 carbon dioxide, venous blood 23 mmol/L [facility] 20-29 2 chloride, serum 105 mmol/L [facility] 96-106 2 potassium, serum 4.6 mmol/L [facility] 3.5-5.2 2 sodium, serum 141 mmol/L [facility] 588-951 9090/06/2 2 urea nitrogen/creatinine ratio, serum 13 [facility] 9-23 2 eGFR if 113 mL/min/{1 .73_m2} [facility] >59 2 eGFR if not 98 mL/min/{1 .73_m2} [facility] >59 2 creatinine, serum 0.82 mg/dL [facility] 0.57-1.00 2 urea nitrogen, blood 11 mg/dL [facility] 6-20 2 blood glucose, random 90 mg/dL [facility] 65-99 HISTORY OF MEDICATION USE Medication Status Instructions Dates Provider Indications Com ments LISINOPRIL 5 MG ORAL TABLET completed ONE TAB. DAILY at bedtime - Ivanna Acevedo MAGNESIUM OXIDE 400 MG ORAL TABLET active ONE TAB TWICE A DAY Geovani Patel SOCIAL HISTORY Date Observation Value Provider quit smoking, stage quit Geovani A nadya social history reviewed E&M revi ewed - no changes required Geovani Patel smoking status Current every day smoker Marcos Ocampo quit smoking, stage quit Geovani A nadya social history reviewed E&M revi ewed - no changes required Geovani Patel smoking status Current every day smoker Mario Acevedo social history reviewed E&M revi ewed - no changes required Geovani Patel smoking status Current every day smoker C matthewangel Curtis smoking status Current every day smoker C patrizia Acevedo number of grandchildren Brandon Powell smoking status Current every day smoker N florinmateus Andre social history E&M S moking History: Jesika tripathi currently smokes every day. Juan Powell social history reviewed E&M revi ewed - no changes required Juan Powell number of years as a smoker 10 a Maia Vincent smoking history, total pack/day 10 Maia O'Casa FUNCTIONAL STATUS Date Observation Value Provider periodic limb movement index absent (0) Brandon Barton MD FAMILY HISTORY Family Member Condition Mother [place] female <65 Maternal Grandmother Family History of C oronary Artery Disease: INSURANCE PROVIDERS Payer name Policy type / Coverage type [place] [employer] [place] [employer] MEDICAID (2) Medicaid [id number] ADVANCE DIRECTIVES Name Date DISCUSSED - NO DECISION MADE TREATMENT PLAN Date Name Performer Cardiology:echo in a year with follow up O rders: E KG (CPT-37884) Geovani Patel Cardiology: O rders: 9 9213 LTD. Complex (CPT-23427) M obile Cardiac Tele (CPT-71706) Geovani Patel Cardiology:Holter In terpretation: R hythm: Sinus Rhythm with a Sinus Arrhythmia A verage heart rate: 73BPM M aximum heart rate: 134BPM M inimum heart rate: 38BPM O rders: E KG (CPT-03298) 9 9213 LTD. Complex (CPT-22561) M obile Cardiac Tele (CPT-45028) Geovani Patel Cardiology: O rders: 9 9213 LTD. Complex (CPT-42541) M obile Cardiac Tele (CPT-29692) Geovani Patel Electrophysiology fo llow up : T he following medications were removed from the medication list: Lisinopril 5 Mg Oral Tablet (Lisinopril) ..... One tab. daily at bedtime [facility] Electrophysiology fo llow up : T he following medications were removed from the medication list: Lisinopril 5 Mg Oral Tablet (Lisinopril) ..... One tab. daily at bedtime [facility] Electrophysiology fo llow up :Conclusions: The results are within normal limits. P ulmonary Function Diagnosis: N ormal Pulmonary Function [facility] Electrophysiology fo llow up : T he following medications were removed from the medication list: Lisinopril 5 Mg Oral Tablet (Lisinopril) ..... One tab. daily at bedtime [facility] Electrophysiology fo llow up : H er updated medication list for this problem includes: Lisinopril 5 Mg Oral Tablet (Lisinopril) ..... One tab. daily at bedtime Orders: C omplete Echo (CPT-69187) H olter Monitor 24 Hr (CPT-97499) [facility] Electrophysiology fo llow up : O rders: C omplete Echo (CPT-09267) H olter Monitor 24 Hr (CPT-07402) [facility] Electrophysiology fo llow up : O rders: C omplete Echo (CPT-71937) H olter Monitor 24 Hr (CPT-95060) 9 9213 LTD. Complex (CPT-33916) Her updated medication list for this problem includes: Lisinopril 5 Mg Oral Tablet (Lisinopril) ..... One tab. daily at bedtime [facility] Electrophysiology fo llow up : H er updated medication list for this problem includes: Lisinopril 5 Mg Oral Tablet (Lisinopril) ..... One tab. daily at bedtime Orders: C omplete Echo (CPT-77928) H olter Monitor 24 Hr (CPT-93133) [facility] Electrophysiology:Or ders: E KG (CPT-15998) 9 9205 HIGH Complex (CPT-47245) F VC - 17031 (45270) F RC - 66689 (09859) D LCO - 58533 (60038) H olter Monitor 24 Hr (CPT-81051) S tress Routine (CPT-26143) C OMPREHENSIVE METABOLIC PANEL, W/EGFR (33952) C BC (INCLUDES DIFF/PLT) (6399) T HYROID PANEL WITH TSH, 3RD GENERATION (7444) Ranjana AGNESIUM (622) Juan Powell Electrophysiology:Sh e states she first made aware of her arrhythmia when her professor noted she had an irregular heart beat. Will order 24 hr holter and routine stress. Orders: 9 9205 HIGH Complex (CPT-90570) F VC - 93013 (40927) F RC - 16275 (27162) D LCO - 87111 (33253) H olter Monitor 24 Hr (CPT-06676) S tress Routine (CPT-92498) C OMPREHENSIVE METABOLIC PANEL, W/EGFR (79592) C BC (INCLUDES DIFF/PLT) (6399) T HYROID PANEL WITH TSH, 3RD GENERATION (7444) M AGNESIUM (622) Juan Powell Date Name Complete Echo Holter Monitor 24 Hr Holter Monitor 24 Hr THYROID PANEL WITH T SH, 3RD GENERATION LIPID PANEL CBC (INCLUDES DIFF/P LT) COMPREHENSIVE METABO LIC PANEL, W/EGFR Sleep Study Home Holter Monitor 24 Hr Complete Echo MAGNESIUM THYROID PANEL WITH T SH, 3RD GENERATION CBC (INCLUDES DIFF/P LT) COMPREHENSIVE METABO LIC PANEL, W/EGFR Stress Routine Holter Monitor 24 Hr [facility] - 75884 FRC - 56538 FVC - 41477 HISTORY OF PROCEDURES Procedure Date Procedure Name Provider Procedure Notes S tatus EKG Brandon Barton MD comp leted EKG Brandon Barton MD comp leted Stress EKG Brandon Barton MD comp leted FVC / MVV - 15529 Brandon Barton MD completed FRC - 23347 Brandon Barton MD com pleted SpO2 w/o 6min walk/titration Brandon Barton MD completed [facility] - 94066 Brandon Barton MD co mpleted Holter, 24 or 48 Brandon Barton MD completed Schedule Followup Brandon Barton MD In a cou ple weeks. completed EKG Brandon Barton MD comp leted
--- OUTSIDE RECORDS SUMMARY | 2024-10-18 15:58 | XMS_ITS | Referral Summary ---
Author Organization [facility] Address [address] [place] [address] Care Team Providers Care Hot Dip Plating Supervisor Name Role Phone Demarco Bennett MD Primary Care Provider Source Comments [facility],non-[facility] Affiliates and Associated Physician Practices is amultiple site organization consisting of ambulatory clinics and hospital sitesin [place], [place], [place] and [place]. This disclosure is being madepursuant to the Care Everywhere program and may not contain all information available regarding this patient. Last updated 18.[facility] Encounters Date Type Department Care Team Description 10/04/2024 11:14 AM POWER GRADER OPERATOR - 10/04/2024 11:59 PM POWER GRADER OPERATOR Hospital Encounter [facility] [address] [place] [phone] Sukhi Hearn MD Discharge Disposition: Home or Self Care 08/16/2024 11:12 AM POWER GRADER OPERATOR - 08/16/2024 11:59 PM POWER GRADER OPERATOR Hospital Encounter [facility] [address] [place] [id number] Daphne Jerome MD Polcaro, Joseph, DO Discharge Disposition: Home or Self Care 07/26/2024 Telephone [facility] [address] [place] [phone] Kady Pham Appointment (LM for pt to C/S appt) from Last 3 Months Allergies Active Allergy Reactions Criticality Noted Date Comments Shellfish Allergy 09/02/2016 Medications * Be aware that medications may not be up to date on this document. Alwaysverify current medications with the patient. Medication Sig Dispensed Refills Start Date End Date Status Cyanocobalamin (VITAMIN B 12 PO) Active Fish Oil-Cholecalciferol (FISH OIL + D3 PO) Active Vit-DSS-Fe Fum-FA ( vitamin with iron) tablet Take 1 (one) tablet by mouth once daily Active aspirin (Aspirin) 81 MG chew tablet Take 2 (two) tablets by mouth once daily Active Active Problems Patient Care Coordination No te Formatting of this note migh t be different from the original. NOPP-MFCC 06/2016 Problem Noted Date Diagnosed Date Abnormal quad screen 06/04/2016 Estimated Date of Delivery Comme nts Yes 02/20/2025 Based on last me nstrual period of 05/16/2024 Social History Tobacco Use Types Packs/Day Years Used Date Smoking Tobacco: Former Cigarettes Smokeless Tobacco: Never Tobacco Cessation:Counseling Given: Not Answered Alcohol Use Standard Drinks/Week Comments Not Currently 0 (1 standard drink = 0.6 oz pur e alcohol) Estimated Date of Delivery Comme nts Yes 02/20/2025 Based on last me nstrual period of 05/16/2024 Sex and Gender Information Value Date Recorded Sex Assigned at Not on file Gender Identity Not on file Sexual Orientation Not on file Last Filed Vital Signs Vital Sign Reading Time Taken Comments Blood Pressure 119/75 01/26/2024 1:40 PM CDT Pulse 104 01/26/2024 1:40 PM CDT Temperature 37.1 C (98.8 F) 01/21/2018 2:24 PM CDT Respiratory Rate 16 01/21/2018 2:24 PM CDT Oxygen Saturation 97% 01/21/2018 2:24 PM CDT Inhaled Oxygen Concentration - - Weight 114.5 kg (252 lb 6.4 oz) 024 10:23 AM POWER GRADER OPERATOR Height 162.6 cm (5' 4 ) 09/10/2023 10:2 3 AM POWER GRADER OPERATOR Body Mass Index 43.32 09/10/2023 10:23 AM POWER GRADER OPERATOR Plan of Treatment Upcoming Encounters Date Type Department Care Team (Late st Contact Info) Description 11/01/2024 9:00 AM CDT Appointment [facility] [address] [place] [id number] Procedures Procedure Name Priority Date/Time Associated Diagnosis Comments SONOGRAM - COMPLETE Routine 10/04/2024 1 1:14 AM POWER GRADER OPERATOR Dichorionic diamniotic twin in second trimester (HCC) BMI 40.0-44.9, adult ([facility]) 28 weeks gestation of ([facility]) Encounter for follow-up ultrasound of anatomy ([facility]) Encounter for ultrasound to assess growth ([facility]) SONOGRAM - COMPLETE Routine 08/16/2024 1 1:29 AM POWER GRADER OPERATOR BMI 45.0-49.9, adult ([facility]) History of 3 sections Short interval between pregnancies affecting , antepartum ([facility]) 13 weeks gestation of ([facility]) Fourth ([facility]) from Last 3 Months Results * SONOGRAM - COMPLETE (10/04/2024 11:14 AM POWER GRADER OPERATOR) Only the most recent of2 resultswithin the time period is included. Linked Results Indication ======== Anatomy Short interval Obesity, Class III History ====== OB History 4. Para 4 1. live 2011. Gest. age 39 w + 0 d. Sex of child: male. Details: delivery 2. live 2016. Gest. age 39 w + 0 d. Sex of child: male. Details: delivery 3. live 2023. Gest. age 37 w + 0 d. Details: Twins, GDM, delivery Maternal Assessment Physical Exam Height 163 cm, 5 ft 4 in. Weight 125 kg, 275 lb. Initial weight 122 kg, 268 lb. BMI 47.20 kg/m . Initial BMI 46.00 kg/m . Weight gain 3 kg, 7 lb Method ====== Transabdominal and transvaginal ultrasound examination. View: limited secondary to challenging acoustic properties ========= Lin . Number of fetuses: 1 Dating ====== Date Details Gest. age BRYCE LMP 05/16/2024 20 w + 1 d 02/20/2025 Stated BRYCE 20 w + 1 d 02/20/2025 U/S 10/04/2024 based upon AC, BPD, Femur, HC 21 w + 1 d 02/13/2025 Assigned dating based on the LMP, selected on 08/16/2024 20 w + 1 d 02/20/2025 General Evaluation Cardiac activity present. FHR 155 bpm. Presentation: cephalic Placenta: Placental site: posterior Umbilical cord: Cord vessels: 3 vessel cord. Insertion site: normal insertion Amniotic fluid: Amount of AF: normal. MVP 4.5 cm Biometry BPD 47.6 mm 20w 3d 61% Hadlock HC 179.5 mm 20w 3d 54% Hadlock Cerebellum tr 21.0 mm 69% [place] Nuchal fold 3.8 mm AC 168.0 mm 21w 6d 90% Hadlock Femur 36.9 mm 21w 5d 90% Hadlock Humerus 34.1 mm 21w 4d 93% Marah HC / AC 1.07 -/- 5% Hadlock Weight Calculation: EFW 435 g 98% Hadlock EFW (lb,oz) 0 lb 15 oz EFW by Hadlock ([id number]) Head / Face / Neck Biometry: CM 4.3 mm 26% Nicolaides LGA Growth Overview Exam date GA BPD (mm) HC (mm) AC (mm) FL (mm) HL (mm) EFW (g) 10/04/2024 20w 1d 47.6 61% 179.5 54% 168 90% 36.9 90% 34.1 93% 435 98% Anatomy The following structures appear normal: Head / Neck Cranium. Right lateral ventricle. Midline falx. Cavum septi pellucidi. Cerebellum. Cisterna magna. Thalami. Nuchal fold. Heart / Thorax 3-vessel view. Situs. Aortic arch view. Diaphragm. Abdomen Cord insertion. Stomach. Kidneys. Bladder. Bowel. Genitals. Spine Cervical spine. Thoracic spine. Lumbar spine. Sacral spine. Extremities / Skeleton Arms. Legs. Feet. The following structures could not be adequately visualized: Head / Neck Left lateral ventricle. Choroid plexus. Face Lips. Profile. Nose. Nasal bone. Orbits. Heart / Thorax 4-chamber view. RVOT view. LVOT view. 1-ytyajm-dmjeovy view. Bicaval view. Ductal arch view. Great vessels. Right lung. Left lung. Extremities / Skeleton Hands. Maternal Structures Cervix reassuring Approach - Transvaginal: Cervical length 4.60 cm Right Ovary Not visualized Left Ovary Not visualized Impression ========= Single live intrauterine at 20w 1d The BRYCE is 02/20/2025 size is LGA The amniotic fluid volume: normal Transvaginal cervical length is reassuring measuring 4.6 cm No major malformations were seen within the limitations of ultrasound Follow-up ======== Follow up ultrasound in 4 weeks for growth and to complete anatomic survey Coding ====== Procedures 28038: US Preg Uterus Detailed 50540: US Preg Uterus Transvaginal [facility] [employer] PACS Anatomical Region Laterality Modality Other 10/04/2024 11:1 4 AM POWER GRADER OPERATOR Rosales Negron MD [facility] ORDERABLES from Last 3 Months Care Teams Hot Dip Plating Supervisor Relationship Specialty Start Date End Date Demarco Bennett MD [address] [place] [address] PCP - General Family Medicine 06/04/16
--- OUTSIDE RECORDS SUMMARY | 2024-10-18 15:58 | XMS_ITS | Clinical Summary ---
Author Organization [facility] Address [address] [place] [address] Care Team Providers Care Graphics Coordinator Name Role Phone Demarco Bennett MD Primary Care Provider [phone] Source Comments [facility],non-owned Affiliates and Associated Physician Practices is amultiple site organization consisting of ambulatory clinics and hospital sitesin [place], [place], [place] and [place]. This disclosure is being madepursuant to the Care Everywhere program and may not contain all information available regarding this patient. Last updated 18.[facility] Allergies Active Allergy Reactions Criticality Noted Date [...] migh t be different from the original. NOPP-CC 06/2016 Problem Noted Date Diagnosed Date Abnormal quad screen 06/04/2016 Estimated Date of Delivery Comme nts Yes 02/20/2025 Based on last me nstrual period of 05/16/2024 Encounters Date Type Department Care Team Description 10/04/2024 11:14 AM TRACK HOE OPERATOR - 10/04/2024 11:59 PM TRACK HOE OPERATOR Hospital Encounter [facility] [address] [place] [address] Sukhi Hearn MD Discharge Disposition: Home or Self Care 08/16/2024 11:12 AM TRACK HOE OPERATOR - 08/16/2024 11:59 PM TRACK HOE OPERATOR Hospital Encounter [facility] [address] [place] [address] Daphne Jerome MD Polcaro, Joseph, DO Discharge Disposition: Home or Self Care 07/26/2024 Telephone [facility] [address] [place] [address] Kady Pham Appointment (LM for pt to C/S appt) from Last 3 Months Social History Tobacco Use Types Packs/Day Years [...] (252 lb 6.4 oz) 024 10:23 AM TRACK HOE OPERATOR Height 162.6 cm (5' 4 ) 09/10/2023 10:2 3 AM TRACK HOE OPERATOR Body Mass Index 43.32 09/10/2023 10:23 AM TRACK HOE OPERATOR Plan of Treatment Upcoming Encounters Date Type Department Care Team (Late st Contact Info) Description 11/01/2024 9:00 AM CDT Appointment [facility] [address] [place] [id number] Health Maintenance Due Date Last Done Comments PAP SMEAR 1990 HIV SCREENING 2005 HEPATITIS C SCREENING 04/10/2008 DTAP/TDAP/TD VACCINES (1 - Tdap) 2009 HEPATITIS B VACCINE (1 of 3 - 19+ 3-dose series) 2009 COVID-19 VACCINE (1 - 2023-2 5 season) 2024 INFLUENZA VACCINE (#1) 2024 05/31/2019 DEPRESSION SCREENING 08/04/2024 ZOSTER VACCINE (1 of 2) 2040 HIB VACCINE Aged Out No longer eligi ble based on patient's age to complete this topic HPV VACCINE Aged Out No longer eligi ble based on patient's age to complete this topic MENINGOCOCCAL (Group B) VACC INE SHARED DECISION-MAKING Aged Out No longer eligibl e based on patient's age to complete this topic MENINGOCOCCAL GROUPS A/C/Y/W VACCINE Aged Out No longer eligible b ased on patient's age to complete this topic PNEUMOCOCCAL VACCINE Aged Out No long er eligible based on patient's age to complete this topic Respiratory Syncytial Virus (RSV) Vaccine Pt: or over 60 yrs (No Doses Required) Completed Procedures Procedure Name Priority Date/Time Associated Diagnosis Comments SONOGRAM - COMPLETE Routine 10/04/2024 1 1:14 AM TRACK HOE OPERATOR Dichorionic diamniotic twin in second trimester (HCC) BMI 40.0-44.9, adult (HCC) 28 weeks gestation of ([facility]) Encounter for follow-up ultrasound of anatomy ([facility]) Encounter for ultrasound to assess growth ([facility]) SONOGRAM - COMPLETE Routine 08/16/2024 1 1:29 AM TRACK HOE OPERATOR BMI 45.0-49.9, adult (HCC) History of 3 sections Short interval between pregnancies affecting , antepartum (HCC) 13 weeks gestation of (HCC) Fourth ([facility]) from Last 3 Months Results * SONOGRAM - COMPLETE (10/04/2024 11:14 AM TRACK HOE OPERATOR) Only the most recent of2 resultswithin [...] 0 lb 15 oz EFW by Hadlock ([id number]) Head / Face / Neck Biometry: CM [...] Thorax 4-chamber view. RVOT view. LVOT view. 0-knzgbj-cssvgbi view. Bicaval view. Ductal arch view. Great [...] to complete anatomic survey Coding ====== Procedures 06568: US Preg Uterus Detailed 21297: US Preg Uterus Transvaginal [facility] PACS Anatomical Region Laterality Modality Other 10/04/2024 11:1 4 AM TRACK HOE OPERATOR Rosales Negron MD [facility] ORDERABLES from Last 3 Months Care Teams Graphics Coordinator Relationship Specialty Start Date End Date Demarco Bennett MD [address] [place] [address] PCP - General Family Medicine 06/04/16
--- OUTSIDE RECORDS SUMMARY | 2024-10-18 15:58 | XMS_ITS | Patient Health Summary ---
Author Organization [facility] Address [address] [place] [address] Care Team Providers Care Housing And Residence Life Director Name Role Phone Demarco Bennett MD Primary Care Provider [phone] Note from [facility],non-owned Affiliates and Associated Physician Practices is amultiple site organization consisting of ambulatory clinics and hospital sitesin [place], [place], [place] and [place]. This disclosure is being madepursuant to the Care Everywhere program and may not contain all information available regarding this patient. Last updated 18.[facility] Allergies * Shellfish Allergy * Uncaria Tomentosa, Cats Claw,Inactive Medications * Be aware that medications may not be up to date on this document. Alwaysverify current medications with the patient. * Cyanocobalamin (VITAMIN B 12 PO) * Fish Oil-Cholecalciferol (FISH OIL + D3 PO) * Vit-DSS-Fe Fum-FA ( vitamin with iron) tablet Take 1 (one) tablet by mouth once daily * aspirin (Aspirin) 81 MG chew tablet Take 2 (two) tablets by mouth once daily Active Problems Problem Noted Date Diagnosed Date Abnormal quad screen 06/04/2016 Social History Tobacco Use Types Packs/Day Years [...] (252 lb 6.4 oz) 024 10:23 AM PIECE WORK CHECKER Height 162.6 cm (5' 4 ) 09/10/2023 10:2 3 AM PIECE WORK CHECKER Body Mass Index 43.32 09/10/2023 10:23 AM PIECE WORK CHECKER Procedures * SONOGRAM - COMPLETE(Performed 10/04/2024) Performed for Dichorionic diamniotic twin in second trimester ([facility]), BMI 40.0-44.9, adult([facility]), 28 weeks gestation of ([facility]), Encounter for follow-up ultrasound of anatomy ([facility]), Encounter for ultrasound to assess growth ([facility]) * SONOGRAM - COMPLETE(Performed 08/16/2024) Performed for BMI 45.0-49.9, adult ([facility]), History of 3 sections, Short interval between pregnancies affecting , antepartum ([facility]), 13 weeks gestation of ([facility]), Fourth ([facility]) * BIOPHYSICAL PROFILE W NST(Performed 01/26/2024) Performed for Third ([facility]), Dichorionic diamniotic twin in second trimester ([facility]), BMI 40.0-44.9, adult ([facility]), Encounter for screening ([facility]) * BIOPHYSICAL PROFILE W NST(Performed 01/19/2024) Performed for Third ([facility]), Dichorionic diamniotic twin in second trimester ([facility]), BMI 40.0-44.9, adult ([facility]), Encounter for screening ([facility]) * SONOGRAM - COMPLETE(Performed 01/05/2024) Performed for Dichorionic diamniotic twin in second trimester ([facility]), BMI 40.0-44.9, adult([facility]), 28 weeks gestation of ([facility]), Encounter for follow-up ultrasound of anatomy ([facility]), Encounter for ultrasound to assess growth ([facility]) * SONOGRAM - COMPLETE(Performed 12/08/2023) Performed for Dichorionic diamniotic twin in second trimester ([facility]), BMI 40.0-44.9, adult([facility]), 28 weeks gestation of ([facility]), Encounter for follow-up ultrasound of anatomy ([facility]), Encounter for ultrasound to assess growth ([facility]) * SONOGRAM - COMPLETE(Performed 11/07/2023) Performed for Dichorionic diamniotic twin in second trimester ([facility]), BMI 40.0-44.9, adult([facility]), 24 weeks gestation of ([facility]), Encounter for follow-up ultrasound of anatomy ([facility]), Encounter for ultrasound to assess growth ([facility]) * SONOGRAM - COMPLETE(Performed 10/07/2023) Performed for Dichorionic diamniotic twin in second trimester ([facility]), Rh negative status during in second trimester ([facility]), BMI 40.0-44.9, adult ([facility]), 20 weeks gestation of ([facility]) * SONOGRAM - COMPLETE(Performed 09/10/2023) Performed for Dichorionic diamniotic twin in second trimester ([facility]), Encounter for anatomic survey ([facility]), Rh negative status during in second trimester ([facility]) * STREP A SCREEN - POINT OF CARE (AMB) STL(Performed 01/21/2018) Performed for Acute suppurative otitis media of left ear without spontaneous rupture of tympanic membrane, recurrence not specified * CULTURE THROAT(Performed 10/06/2017) Performed for Acute pharyngitis, unspecified etiology, Lymphadenopathy, submandibular * STREP A SCREEN - POINT OF CARE (AMB) STL(Performed 10/06/2017) Performed for Acute pharyngitis, unspecified etiology * STREP A SCREEN - POINT OF CARE (AMB) STL(Performed 09/13/2017) Performed for Acute streptococcal pharyngitis * STREP A SCREEN - POINT OF CARE (AMB) STL(Performed 07/24/2017) Performed for Strep throat * SONOGRAM - COMPLETE(Performed 06/04/2016) Results * SONOGRAM - COMPLETE (10/04/2024 11:14 AM PIECE WORK CHECKER) Only the most recent of8 resultswithin the time period is included. Linked [...] 0 lb 15 oz EFW by Hadlock ([id number]) Head / Face / Neck Biometry: CM [...] Thorax 4-chamber view. RVOT view. LVOT view. 3-dfpuyp-afonhun view. Bicaval view. Ductal arch view. Great [...] to complete anatomic survey Coding ====== Procedures 94683: US Preg Uterus Detailed 96668: US Preg Uterus Transvaginal [employer] PACS Anatomical Region Laterality Modality Other 10/04/2024 11:1 4 AM PIECE WORK CHECKER Rosales Negron MD [facility] ORDERABLES * BIOPHYSICAL PROFILE W NST (01/26/2024 1:55 PM CDT) Only the most recent of2 resultswithin the time period is included. Anatomical Region Laterality Modality Other 01/26/2024 1:55 PM CDT Narrative 01/26/2024 3:07 PM CDT [facility] [place] PHONE: FAX: FETUS A Pat. Name: ROSALIND TERAN Pat. No: [id number] Study Date: 01/26/2024 1:55pm , Age: 09 1990, 33 Height: 64 in Weight: 250 lb LMP: Unknown GA by Base: 36w0d BRYCE: 02/23/2024 GA Selected: 36w0d (From [facility]) BRYCE: 02/23/2024 Referring MD: Rosales Negron MD Pulp Refiner Operator: Juhi Vides, JAGDEEP, RDCS CPT4: 12410,11372k2 BMI: 42.91 Hist/Ind: G1: C/S 39 wk 4366 gm, oligohydramnios G2: C/S 39 wk 5415 gm G3: Current , GDM-A1 Spontaneous DA/DC twins Low-risk cf-DNA, Class III obesity Heart Rate: 167 bpm Amniotic Fluid Index: 03.8cm (Deepest Pocket) Biophysical Profile: 05/13 Breathin Tone: 2 NST: 2 Movement: 2 AFV: 2 PROCEDURE, TECHNIQUE Technique: transabdominal EVAL, PLACENTA Presentation: cephalic MaternalSide: left Placenta: posterior Heart Rate: 167 bpm Amniotic Fluid Volume: normal CLINICAL SUMMARY IMPRESSION: Dichorionic, diamniotic twins, live, intrauterine at 36w0d Amniotic fluid volume: Normal for twin A, and normal for twin B Biophysical profile: Normal (05/13) for twin A, and Normal (05/13) for twin B NSTs are reactive, moderate BTBV & normal baseline x2 RECOMMEND: Continue weekly testing growth in 1 week Thank you for allowing us the opportunity to care for your patient Ricco Galvan MD <Electronic Signature> 01/26/2024 03:07pm FETUS B Pat. Name: ROSALIND TERAN Pat. No: [id number] Study Date: 01/26/2024 1:55pm , Age: 09 1990, 33 Height: 64 in Weight: 250 lb LMP: Unknown GA by Base: 36w0d BRYCE: 02/23/2024 GA Selected: 36w0d (From [facility]) BRYCE: 02/23/2024 Referring MD: Rosales Negron MD Pulp Refiner Operator: Juhi Vides, RDNH, RDCS CPT4: 60434,65915z0 Hist/Ind: G1: C/S 39 wk 4366 gm, oligohydramnios G2: C/S 39 wk 5415 gm G3: Current , GDM-A1 Spontaneous DA/DC twins Low-risk cf-DNA, Class III obesity Heart Rate: 164 bpm Amniotic Fluid Index: 05.0cm (Deepest Pocket) Biophysical Profile: 05/13 Breathin Tone: 2 NST: 2 Movement: 2 AFV: 2 PROCEDURE, TECHNIQUE Technique: transabdominal EVAL, PLACENTA Presentation: cephalic MaternalSide: right Placenta: anterior Heart Rate: 164 bpm Amniotic Fluid Volume: normal CLINICAL SUMMARY Ricco Galvan MD <Electronic Signature> 01/26/2024 03:07pm Rosales Negron MD [facility] ORDERABLES * STREP A SCREEN - POINT OF CARE (AMB) STL (01/21/2018) Only the most recent of4 resultswithin the time period is included. Pathologist [facility] Strep A Rapid POCT Negative Negative Strep A Internal Control Present Lot # [id number] Expiration Date 07-16-19 Throat ENTIRE THROAT (SURFACE REGION OF NECK) / Unknown 01/21/2018 [facility] - POINT OF CARE ORDERABLES * CULTURE THROAT (10/06/2017 4:58 PM PIECE WORK CHECKER) Pathologist [facility] Culture QUEST Comment: CULTURE, THROAT MICRO NUMBER: [id number] TEST STATUS: FINAL SPECIMEN SOURCE: THROAT SPECIMEN QUALITY: ADEQUATE RESULT: No oropharyngeal pathogens recovered. Test Performed at: [facility] [id number] TEE DAVIDSON MD Microbiology ENTIRE THROAT (SURFACE REGION OF NECK) / Unknown 10/06/2017 4:58 PM PIECE WORK CHECKER 10/07/2017 1:36 AM PIECE WORK CHECKER [facility] - MICROBIO LOGY ORDERABLES [address] [address] Care Teams Housing And Residence Life Director Relationship Specialty Start Date End Date Demarco Bennett MD [address] [place] [address] PCP - General Family Medicine 06/04/16
== END 2024-10-18 13:25 | disposition home or self-care (01) ==
PROVIDERS: PCP Student in an Organized Health Care Education/Training Program; Visit Provider Student in an Organized Health Care Education/Training Program
DX: R30.0 Dysuria (principal)
CPT/HCPCS: 87086; 87186

== ENCOUNTER 2024-12-24 12:56 | Outpatient (RCR) | payer OTHER, SELFPAY ==
--- OUTSIDE RECORDS SUMMARY | 2024-12-22 11:38 | XMS_ITS | Clinical Summary ---
Author Organization [facility] Address [address] [place] [address] Care Team Providers Care Director Compensation Name Role Phone Demarco Bennett MD Primary Care Provider [phone] [facility],non-owned Affiliates and Associated Physician Practices is amultiple site organization consisting of ambulatory clinics and hospital sitesin [place], [place], [place]. This disclosure is being madepursuant to the Care Everywhere program and may not contain all information available regarding this patient. Last updated 18.[facility] Allergies Active Allergy Reactions Criticality Noted Date Comments Shellfish Allergy 09/02/2016 Medications * Be aware that medications may not be up to date on this document. Alwaysverify current medications with the patient. Cyanocobalamin (VITAMIN B 12 PO) Active Fish Oil-Cholecalcif desire (FISH OIL + D3 PO) Active Vit-DSS-Fe [...] Encounters Date Type Department Care Team Description 11/16/2024 1:00 PM CDT - 11/16/2024 11:59 PM CDT Hospital Encounter [facility] [address] [place] [address] Sukhi Hearn MD Discharge Disposition: Home or Self Care 10/04/2024 11:14 AM FAST FOOD CASHIER - 10/04/2024 11:59 PM FAST FOOD CASHIER Hospital Encounter [facility] [address] [place] [address] Sukhi Hearn MD Discharge Disposition: Home or Self Care from Last 3 Months Social History Tobacco [...] Recorded Sex Assigned at Not on file Legal Sex Female 12:49 PM CDT Gender Identity Not on file Sexual Orientation [...] (252 lb 6.4 oz) 024 10:23 AM FAST FOOD CASHIER Height 162.6 cm (5' 4 ) 09/10/2023 10:2 3 AM FAST FOOD CASHIER Body Mass Index 43.32 09/10/2023 10:23 AM FAST FOOD CASHIER Plan of Treatment Health Maintenance Due Date Last Done Comments PAP SMEAR 1990 HIV SCREENING 2005 HEPATITIS C SCREENING 04/10/2008 DTAP/TDAP/TD VACCINES (1 - Tdap) 2009 HEPATITIS B VACCINE (1 of 3 - 19+ 3-dose series) 2009 COVID-19 VACCINE (2023-2 5 season) 2024 DEPRESSION SCREENING 08/04/2024 OB-ONE HOUR GLUCOSE 11/14/2024 OB-TDAP CURRENT 11/21/2024 OB-RHOGAM INJECTION 11/28/2024 INFLUENZA VACCINE (Season Ended) 2025 05/31/20 19 ZOSTER VACCINE (1 of 2) 2040 HIB [...] Associated Diagnosis Comments SONOGRAM - COMPLETE Routine 11/16/2024 1 2:56 PM CDT BMI 45.0-49.9, adult (HCC) History of 3 sections Short interval between pregnancies affecting , antepartum (HCC) Fourth (HCC) Dichorionic diamniotic twin in second trimester (HCC) 24 weeks gestation of (HCC) SONOGRAM - COMPLETE Routine 10/04/2024 1 1:14 AM FAST FOOD CASHIER Dichorionic diamniotic twin in second trimester BMI 40.0-44.9, adult 28 weeks gestation of Encounter for follow-up ultrasound of anatomy Encounter for ultrasound to assess growth from Last 3 Months Results * SONOGRAM - COMPLETE (11/16/2024 12:56 PM CDT) Only the most recent of2 resultswithin the time period is included. Linked Results Indication ======== Incomplete Anatomy Screen Short interval Obesity, Class III History ====== OB History 4. Para 4 1. live 2011. Gest. age 39 w + 0 d. Sex of child: male. Details: delivery 2. live 2017. Gest. age 39 w + 0 d. Sex of child: male. Details: delivery 3. live 2023. Gest. age 37 w + 0 d. Details: Twins, GDM, delivery Maternal Assessment Physical Exam Height 163 cm, 5 ft 4 in. Weight 131 kg, 288 lb. Initial weight 122 kg, 268 lb. BMI 49.44 kg/m . Initial BMI 46.00 kg/m . Weight gain 9 kg, 20 lb Method ====== Transabdominal ultrasound. View: Good view ========= Lin . Number of fetuses: 1 Dating ====== Date Details Gest. age BRYCE LMP 05/16/2024 26 w + 2 d 02/20/2025 Stated BRYCE 26 w + 2 d 02/20/2025 U/S 11/16/2024 based upon AC, BPD, Femur, HC 27 w + 3 d 02/12/2025 Assigned dating based on the LMP, selected on 08/16/2024 26 w + 2 d 02/20/2025 General Evaluation Cardiac activity present. FHR 149 bpm. Presentation: cephalic Placenta: Placental site: anterior Amniotic fluid: Amount of AF: normal. MVP 5.9 cm Biometry BPD 67.2 mm 27w 0d 67% Hadlock HC 253.6 mm 27w 4d 68% Hadlock AC 232.9 mm 27w 4d 81% Hadlock Femur 50.9 mm 27w 2d 66% Hadlock Humerus 48.0 mm 28w 1d 92% Marah HC / AC 1.09 -/- Hadlock Weight Calculation: EFW 1,079 g 84% Hadlock EFW (lb,oz) 2 lb 6 oz EFW by Hadlock ([id number]) appropriate Growth Overview Exam date GA BPD (mm) HC (mm) AC (mm) FL (mm) HL (mm) EFW (g) 10/04/2024 20w 1d 47.6 61% 179.5 54% 168 90% 36.9 90% 34.1 93% 435 98% 11/16/2024 26w 2d 67.2 67% 253.6 68% 232.9 81% 50.9 66% 48 92% 1079 84% Anatomy Face Profile: nasal bone present. The following structures appear normal: Head / Neck Cranium. Lateral ventricles. Choroid plexus. Midline falx. Face Lips. Nose. Orbits. Heart / Thorax 4-chamber view. RVOT view. LVOT view. 3-vessel view. 6-kxrnth-esvpnjp view. Aortic arch view. Bicaval view. Ductal arch view. Interventricular septum. Great vessels. Right lung. Left lung. Abdomen Stomach. Kidneys. Bladder. Bowel. Extremities / Skeleton Hands. The following structures were documented previously: Head / Neck Cavum septi pellucidi. Cerebellum. Cisterna magna. Thalami. Heart / Thorax Situs. Diaphragm. Abdomen Cord insertion. Genitals. Spine Cervical spine. Thoracic spine. Lumbar spine. Sacral spine. Extremities / Skeleton Arms. Legs. Feet. Impression ========= Single, live, intrauterine at 26w 2d The size is appropriate. The amniotic fluid volume is normal. No major malformations were seen within the limitations of ultrasound Comment ======== Class 3 BMI; prior x 3, short interval Follow-up ======== Follow up ultrasound at 32-34 weeks for growth, well being ~~Add NST if eldon ~~ plan last weeks of testing at that visit. Coding ====== Procedures 50076: US Preg Uterus Follow Up . [facility] Spinal Modulation PACS Anatomical Region Laterality Modality Other 11/16/2024 12:5 6 PM CDT Rosales Negron MD [facility] ORDERABLES Edited Result - Final from Last 3 Months Insurance [facility] MEDICAID - [place] * Guarantor: ROSALIND TERAN Account Type Relation to Patient Date of Phone Billing Address Personal/Family [address] [place] [address] * Guarantor: ROSALIND TERAN Account Type Relation to Patient Date of Phone Billing Address Personal/Family [address] [place] [address] * Guarantor: ROSALIND TERAN Account Type Relation to Patient Date of Phone Billing Address Personal/Family [address] [place] [address] Care Teams Director Compensation Relationship Specialty Start Date End Date Demarco Bennett MD [address] [place] [address] PCP - General Family Medicine 06/04/16
--- OUTSIDE RECORDS SUMMARY | 2024-12-22 11:38 | XMS_ITS | CONTINUITY OF CARE DOCUMENT ---
Author Name gaylamacario gaylamacario Address Unknown Organization [facility] Address [address] [place] [address] Phone [phone] Care Team Providers Care Barrel Dedenting Machine Operator Name Role Phone Brandon Barton MD Unavailable Brandon Barton MD Unavailable [phone] REHAN KUO MD Unavailable PROBLEMS Condition Status Date Provider Notes Dyspnea on exertion active Jaden Hollingsworth Palpitation active Juan Powell PVC's active Juan Powell Cardiomyopathy active Geovani Patel ENCOUNTERS Date Type Provider Location Encounter Diag nosis - In-person encounter Office Visit Brandon Barton MD [facility] - In-person encounter Office Visit Brandon Barton MD [facility] - In-person encounter Office Visit Brandon Barton MD [facility] Cardiomyopathy - In-person encounter Office Visit Brandon Barton MD [facility] PalpitationPVC's VITAL SIGNS Date Observation Value [...] l blood pressure, diastolic 80 mm[Hg] Cy angel Acevedo blood pressure, systolic 124 mm[Hg] Kathie ulysses Acevedo Body Mass Index (Ratio) 43.77 kg/m2 Estevan Powell blood pressure, diastolic 60 mm[Hg] Ma rsha O'Casa blood pressure, systolic 130 mm[Hg] Mar sha O'Casa blood pressure, resting No [place] stone O'Casa respiratory rate E&M 16 /min [...] Estab. 1 platelet count 233 X10E3/UL [employer] [phone]/02/0 1 red blood cell distribution width 12.2 [...] 3.5-5.2 1 sodium, serum 140 mmol/L [employer] [phone]/02/0 1 urea nitrogen/creatinine ratio, serum 12 [employer] [...] Estab. 2 platelet count 193 X10E3/UL [employer] [phone]/06/2 2 red blood cell distribution width 12.8 [...] 3.5-5.2 2 sodium, serum 141 mmol/L [employer] [phone]/06/2 2 urea nitrogen/creatinine ratio, serum 13 [employer] [...] MD FAMILY HISTORY Family Member Condition Mother [place] female <65 Maternal Grandmother Family History of C oronary Artery Disease: INSURANCE PROVIDERS Payer name Policy type / Coverage type [employer] red green party ID [id number] MEDICAID (2) Medicaid [id number] ADVANCE DIRECTIVES Name Date DISCUSSED - NO DECISION MADE TREATMENT PLAN Date Name Performer Cardiology:echo in a year with follow up O rders: E KG (CPT-70782) Geovani Patel Cardiology: O rders: 9 9213 LTD. Complex (CPT-12075) M obile Cardiac Tele (CPT-45075) Geovani Patel Cardiology:Holter In terpretation: R hythm: Sinus Rhythm with a Sinus Arrhythmia A verage heart rate: 73BPM M aximum heart rate: 134BPM M inimum heart rate: 38BPM O rders: E KG (CPT-99859) 9 9213 LTD. Complex (CPT-30901) M obile Cardiac Tele (CPT-75828) Geovani Patel Cardiology: O rders: 9 9213 LTD. Complex (CPT-67406) M obile Cardiac Tele (CPT-95292) Geovani Patel Electrophysiology fo llow up : T he following medications were removed from the medication list: Lisinopril 5 Mg Oral Tablet (Lisinopril) ..... One tab. daily at bedtime [facility] Electrophysiology fo llow up : T he following medications were removed from the medication list: Lisinopril 5 Mg Oral Tablet (Lisinopril) ..... One tab. daily at bedtime [facility] Electrophysiology fo llow up :Conclusions: The results are within normal limits. P ulmonary Function Diagnosis: N ormal Pulmonary Function [facility] Electrophysiology fo llow up : T he following medications were removed from the medication list: Lisinopril 5 Mg Oral Tablet (Lisinopril) ..... One tab. daily at bedtime [facility] Electrophysiology fo llow up : H er updated medication list for this problem includes: Lisinopril 5 Mg Oral Tablet (Lisinopril) ..... One tab. daily at bedtime Orders: C omplete Echo (CPT-26679) H olter Monitor 24 Hr (CPT-01159) [facility] Electrophysiology fo llow up : O rders: C omplete Echo (CPT-44325) H olter Monitor 24 Hr (CPT-09247) [facility] Electrophysiology fo llow up : O rders: C omplete Echo (CPT-40021) H olter Monitor 24 Hr (CPT-65823) 9 9213 LTD. Complex (CPT-29598) Her updated medication list for this problem includes: Lisinopril 5 Mg Oral Tablet (Lisinopril) ..... One tab. daily at bedtime [facility] Electrophysiology fo llow up : H er updated medication list for this problem includes: Lisinopril 5 Mg Oral Tablet (Lisinopril) ..... One tab. daily at bedtime Orders: C omplete Echo (CPT-03880) H olter Monitor 24 Hr (CPT-33587) [facility] Electrophysiology:Or ders: E KG (CPT-40788) 9 9205 HIGH Complex (CPT-18755) F VC - 80223 (65092) F RC - 42145 (98672) D LCO - 84557 (08046) H olter Monitor 24 Hr (CPT-00354) S tress Routine (CPT-92954) C OMPREHENSIVE METABOLIC PANEL, W/EGFR (76479) C BC (INCLUDES DIFF/PLT) (6399) T HYROID PANEL WITH TSH, 3RD GENERATION (7444) Ranjana AGNESIUM (622) Juan Powell Electrophysiology:Sh e states she first made aware of her arrhythmia when her professor noted she had an irregular heart beat. Will order 24 hr holter and routine stress. Orders: 9 9205 HIGH Complex (CPT-09097) F VC - 11542 (00123) F RC - 97140 (22339) D LCO - 60095 (35572) H olter Monitor 24 Hr (CPT-61467) S tress Routine (CPT-37249) C OMPREHENSIVE METABOLIC PANEL, W/EGFR (02903) C BC (INCLUDES DIFF/PLT) (6399) T HYROID [...] Routine Holter Monitor 24 Hr DLCO - 96953 FRC - 29115 FVC - 44738 HISTORY OF PROCEDURES Procedure Date Procedure Name Provider Procedure Notes S tatus EKG Brandon Barton MD comp leted EKG Brandon Barton MD comp leted Stress EKG Brandon Barton MD comp leted FVC / MVV - 73174 Brandon Barton MD completed FRC - 17363 Brandon Barton MD com pleted SpO2 w/o 6min walk/titration Brandon Barton MD completed [facility] - 18035 Brandon Barton MD co mpleted Holter, 24 or 48 Brandon Barton MD completed Schedule Followup Brandon Barton MD In a cou ple weeks. completed EKG Brandon Barton MD comp leted
[2024-12-22 12:44] LABS: Basophils Percent Auto 0.3 % (0.2-1.2); Eosinophils Absolute Auto 0.1 K/mm3 (0-0.3); Eosinophils Percent Auto 1.8 % (0-4.4); Hematocrit 34.2 % (37.0-47.0); Immature Granulocyte Absolute 0.07 K/mm3 (0.00-0.031); Immature Granulocyte Percent A 0.9 % (0-0.5); Lymphocytes Absolute Auto 1.33 K/mm3 (0.9-3.2); Lymphocytes Percent Auto 17.3 % (18.3-44.2); Mean Corpuscular HGB Conc 32.2 g/dl (32-36); Mean Corpuscular Hemoglobin 31.3 pg (26-34); Mean Corpuscular Volume 97.4 fl (80-100); Mean Platelet Volume 11.2 fl (7.4-10.4); Monocytes Absolute Auto 0.4 K/mm3 (0.1-0.6); Monocytes Percent Auto 4.7 % (2.6-8.5); Neutrophils Absolute Auto 5.8 K/mm3 (1.3-6.7); Platelet Count Result 201 k/mm3 (150-375); Red Blood Count 3.51 M/mm3 (4.2-5.4); Red Cell Distribution Width 14.3 % (11.5-14.5); White Blood Count 7.7 K/mm3 (4.5-10.0)
[2024-12-22 12:56] LABS: Glucose 1 Hour PP 50gm Dose 136 mg/dL
[2024-12-22 13:28] LABS: Syphilis IgG/IgM Antibody Negative (Negative)
[2024-12-22 13:37] LABS: HIV 1/2 Ab P24 Ag Result Negative (Negative)
[2024-12-24] MEDS: RHO(D) IMMUNE GLOBULIN 300 MCG/2 ML SYRINGE IM (16:42)
== END 2024-12-24 13:00 | disposition home or self-care (01) ==
LOC: ANHLAB 12:56
PROVIDERS: PCP Student in an Organized Health Care Education/Training Program; Visit Provider Obstetrics & Gynecology
DX: Z34.90 Encounter for supervision of normal pregnancy, unspecified, unspecified trimester (principal)
CPT/HCPCS: 36415; 82947; 85025; 85461; 86593; 86703; 86850; 86900; 86901; 90384; 96372; G0432; J2790

== ENCOUNTER 2025-02-18 05:10 | Inpatient (IN) | payer BC, OTHER, SELFPAY ==
[2025-02-18] VITALS (46 sets, daily range): BP systolic 70–139; BP diastolic 40–65; PULSE 54–117; RESP 16–18; TEMP 36.4–37.5; O2SAT 84–100; BMI 50.3
--- OUTSIDE RECORDS SUMMARY | 2025-02-18 00:08 | XMS_ITS | Clinical Summary ---
Author Organization [facility] Address [address] [place] [address] Care Team Providers Care Railways Assistant Name Role Phone Demarco Bennett MD Primary Care Provider [phone] Source Comments [facility],non-owned Affiliates and Associated Physician Practices is amultiple site organization consisting of ambulatory clinics and hospital sitesin [place], [place] and [place]. This disclosure is being madepursuant to the Care Everywhere program and may not contain all information available regarding this patient. Last updated 18.[facility] Allergies Active Allergy Reactions Criticality Noted Date [...] (252 lb 6.4 oz) 024 10:23 AM [employer] Height 162.6 cm (5' 4) 09/10/2023 10:2 3 AM [employer] Body Mass Index 43.32 09/10/2023 10:23 AM [employer] Plan of Treatment Health Maintenance Due Date Last Done Comments HIV SCREENING 2005 HEPATITIS C SCREENING 04/10/2008 DTAP/TDAP/TD VACCINES (1 - Tdap) 2009 HEPATITIS B VACCINE (1 of 3 - 19+ 3-dose series) 2009 PAP SMEAR 2011 HPV VACCINE (1 - 3-dose SCDM series) 2017 COVID-19 VACCINE (2023-2 5 season) 2024 DEPRESSION SCREENING 08/04/2024 OB-ONE HOUR GLUCOSE 11/14/2024 OB-TDAP CURRENT 11/21/2024 09/27/2014 OB-RHOGAM INJECTION 11/28/2024 OB-GROUP B STREP SCREEN 01/16/2025 INFLUENZA VACCINE (#1) 2025 05/31/2019 ZOSTER VACCINE (1 of 2) 2040 HIB [...] over 60 yrs (No Doses Required) Completed Insurance [facility] MEDICAID - [place] * Guarantor: ROSALIND TERAN Account Type Relation to Patient Date of Phone Billing Address Personal/Family [address] [place] [address] * Guarantor: ROSALIND TERAN Account Type Relation to Patient Date of Phone Billing Address Personal/Family [address] [place] [address] * Guarantor: ROSALIND TERAN Account Type Relation to Patient Date of Phone Billing Address Personal/Family [address] [place] [address] Care Teams Railways Assistant Relationship Specialty Start Date End Date Demarco Bennett MD [address] [place] [address] PCP - General Family Medicine 06/04/16
--- OUTSIDE RECORDS SUMMARY | 2025-02-18 05:19 | XMS_ITS | Clinical Summary ---
Author Organization [facility] Address [address] [place] [address] Care Team Providers Care Brick Grader Name Role Phone Demarco Bennett MD Primary Care Provider [phone] Source Comments [facility],non-owned Affiliates and Associated Physician Practices is amultiple site organization consisting of ambulatory clinics and hospital sitesin [place], [place], [place] and [place]. This disclosure is being madepursuant to the Care Everywhere program and may not contain all information available regarding this patient. Last updated 18.[facility] Allergies Active Allergy Reactions Criticality Noted Date [...] (252 lb 6.4 oz) 024 10:23 AM SNOUT PULLER Height 162.6 cm (5' 4) 09/10/2023 10:2 3 AM SNOUT PULLER Body Mass Index 43.32 09/10/2023 10:23 AM SNOUT PULLER Plan of Treatment Health Maintenance Due Date [...] 60 yrs (No Doses Required) Completed Insurance [facility] MEDICAID - [place] * Guarantor: ROSALIND TERAN Account Type Relation to Patient Date of Phone Billing Address Personal/Family [address] [place] [address] * Guarantor: ROSALIND TERAN Account Type Relation to Patient Date of Phone Billing Address Personal/Family [address] [place] [address] * Guarantor: ROSALIND TERAN Account Type Relation to Patient Date of Phone Billing Address Personal/Family [address] [place] [address] Care Teams Brick Grader Relationship Specialty Start Date End Date Demarco Bennett MD [address] [place] [address] PCP - General Family Medicine 06/04/16
--- NOTE | 2025-02-18 05:27 | LDADM ---
This patient, Rosalind Dorado, was admitted to Labor/Delivery/Recovery 120 on 02/18/25 at 05:10. Plans for labor, pain management and were discussed with patient. Patient/family oriented to hospital policies and general routines including ID bracelet, bed and alarms, visiting hours, pain management, procedures, bathroom and other care routines, personal items, smoking policy, room service/diet and guest tray routines, infant security routines, and visiting hours. Patient/Family are encouraged to report perceived risks to care and to ask questions if they do not understand what they are told or what they should do. See OBIX for further documentation.
[2025-02-18] MEDS: ACETAMINOPHEN 500 MG TABLET 1000 MG PO ×3 (05:35→18:40)
[2025-02-18] MEDS: LACTATED RINGERS 1,000 ML 125 ML IV CONT (06:05)
[2025-02-18 06:11] LABS: Hematocrit 32.8 % (37.0-47.0); Hemoglobin 10.5 g/dL (12.0-15.0); Immature Granulocyte Percent A 1.3 % (0-0.5); Lymphocytes Absolute Auto 1.69 K/mm3 (0.9-3.2); Mean Corpuscular HGB Conc 32.0 g/dl (32-36); Mean Corpuscular Hemoglobin 30.6 pg (26-34); Mean Corpuscular Volume 95.6 fl (80-100); Nucleated Red Blood Cells Absolute Auto 0.000 K/mm3 (0.0-0.012); Nucleated Red Blood Cells Perc 0.0 % (0.0-0.2); Platelet Count Result 223 k/mm3 (150-375); Red Blood Count 3.43 M/mm3 (4.2-5.4); White Blood Count 6.9 K/mm3 (4.5-10.0)
--- NOTE | 2025-02-18 06:37 | P.PNAN_ITS ---
Anes - Initial Pre Proc Eval Procedure: Operation Date: 02/18/25 07:30 Proposed Procedures p Repeat Section - Rosales Negron MD Date/Time: 02/18/25 06:37 Surgeon: Rosales Negron MD Pre Op Diagnosis: Prior C Section Patient Data Age: 34 Gender: F Height: 1.63 m Weight: 133 kg Last Vital Signs Temp 36.5 C 02/18/25 05:35 Pulse 88 02/18/25 06:31 BP 112/65 02/18/25 06:31 O2 Del Method Room Air 02/18/25 05:26 Allergies Allergy/AdvReac Type Severity Reaction Status Date / Time No Known Allergies Allergy Verified 02/09/25 15:11 Home Medications ?Medication ?Instructions ?Recorded ?Confirmed ?Type vits no.126-ferrous fum 1 tablet PO DAILY 07/19/24 02/17/25 History 28 mg iron-folic acid 800 mcg tablet (Classic ) cranberry rlfp-M-bxzpazas tablet PO 10/27/24 02/03/25 History coagulans 250 mg-30 mg-15 mg tablet (Azo Cranberry Plus Probiotic) Laboratory Tests 02/18/25 05:18 WBC 6.9 K/mm3 (4.5-10.0) RBC 3.43 L M/mm3 (4.2-5.4) Hgb 10.5 L g/dL (12.0-15.0) Hct 32.8 L % (37.0-47.0) MCV 95.6 fl (80-100) MCH 30.6 pg (26-34) MCHC 32.0 g/dl (32-36) RDW 15.1 H % (11.5-14.5) Plt Count 223 k/mm3 (150-375) MPV 11.1 H fl (7.4-10.4) Immature Gran % (Auto) 1.3 H % (0-0.5) Neut % (Auto) 62.3 % (45.5-73.1) Lymph % (Auto) 24.5 % (18.3-44.2) [place] % (Auto) 8.9 H % (2.6-8.5) Eos % (Auto) 2.6 % (0-4.4) Baso % (Auto) 0.4 % (0.2-1.2) Lymph # (Auto) 1.69 K/mm3 (0.9-3.2) [place] # (Auto) 0.6 K/mm3 (0.1-0.6) Eos # (Auto) 0.2 K/mm3 (0-0.3) Baso # (Auto) 0.0 K/mm3 (0.0-0.1) Abs Immat Gran (auto) 0.09 H K/mm3 (0.00-0.031) Absolute Neuts (auto) 4.3 K/mm3 (1.3-6.7) Absolute Nucleated RBC 0.000 K/mm3 (0.0-0.012) Nucleated RBC % 0.0 % (0.0-0.2) Patient hx anesthesia problems: none Family hx anesthesia problems: none Results Review: All pre-operative results and documents have been reviewed as part of the pre- operative evaluation. [facility] Past Medical History Medical History Abnormal glucose tolerance in Suppression of menses Surgical History Surgical History History of delivery x 3 Family History Family History Grandparent Heart disease Social History Social History Smoking status: Never smoker Second hand tobacco smoke exposure: No Alcohol intake: never Substance use: never Do You Feel Safe in your Home?: Yes Lack of Transportation: No Lack of Food: Never True Current Housing: I Have Housing Concerned About Future Housing: No Difficulty Paying Gas/Electric Bills: No Difficulty Paying for Meds: No Currently Unemployed: No Education: Associate Degree Difficulty w/ Childcare or Family Care: No Living arrangements: other Additional living arrangements comments: children Occupation/Education: occupation Gender identity (if verbalized by the patient): Female Sexual Orientation (if Verbalized by the Patient): Straight or Heterosexual Spiritual care concerns: No Anes - Eval Final PreProcedure Day of Procedure 02/18/25 06:37 Patient weight: super morbidly obese Heart: regular rate and rhythm Lungs: clear to auscultation and normal air movement Airway: Mallampati scale class II Neurological: alert and oriented Last oral intake: >/= 8 hours ASA classification: III Emergent: no Anesthetic plan: proceed Anesthesia type and monitoring: regional spinal and standard monitoring Results Review: All pre-operative results and documents have been reviewed as part of the pre- operative evaluation. Informed Consent: The patient's anesthetic plan and its attendant risks and benefits were discussed with the patient/family/POA. Questions were solicited and answers provided to the satisfaction of the patient/family/POA.
--- NOTE | 2025-02-18 06:59 | PM.IMHP ---
H&P: HPI History of Present Illness Date/Time: 02/18/25 06:59 Chief Complaint: Intrauterine at term prior x 1 Narrative: 34-year-old 004 at 39 weeks who presents for repeat . Review of Systems Cardiovascular: Cardiovascular: Denies chest pain, Denies leg edema, Denies palpitations, Denies dyspnea and Denies dyspnea on exertion Respiratory: Respiratory: Denies cough, Denies dyspnea and Denies dyspnea on exertion Gastrointestinal: Gastrointestinal: Denies abdominal pain, Denies constipation, Denies diarrhea, Denies nausea and Denies vomiting Genitourinary: Genitourinary: Denies hematuria, Denies urinary frequency, Denies dysuria, Denies pelvic pain, Denies urinary incontinence and Denies vaginal discharge Neurologic: Reports system reviewed and no additional complaints, except as documented Psychiatric: Psychiatric: Reports no additional psychiatric complaints Endocrine: Endocrine: Denies palpitations PMFSH Past Medical History Medical History Abnormal glucose tolerance in Suppression of menses Surgical History Surgical History History of delivery x 3 Family History Family History Grandparent Heart disease Social History Social History Smoking status: Never smoker Second hand tobacco smoke exposure: No Alcohol intake: never Substance use: never Do You Feel Safe in your Home?: Yes Lack of Transportation: No Lack of Food: Never True Current Housing: I Have Housing Concerned About Future Housing: No Difficulty Paying Gas/Electric Bills: No Difficulty Paying for Meds: No Currently Unemployed: No Education: Associate Degree Difficulty w/ Childcare or Family Care: No Living arrangements: other Additional living arrangements comments: children Occupation/Education: occupation Gender identity (if verbalized by the patient): Female Sexual Orientation (if Verbalized by the Patient): Straight or Heterosexual Spiritual care concerns: No Meds Home Medications and Allergies Home Medications ?Medication ?Instructions ?Recorded ?Confirmed ?Type vits no.126-ferrous fum 1 tablet PO DAILY 07/19/24 02/17/25 History 28 mg iron-folic acid 800 mcg tablet (Classic ) cranberry [id number]-B-ytnnflam tablet PO 10/27/24 02/03/25 History coagulans 250 mg-30 mg-15 mg tablet (Azo Cranberry Plus Probiotic) Allergies Allergy/AdvReac Type Severity Reaction Status Date / Time No Known Allergies Allergy Verified 02/09/25 15:11 Vital Signs Vital Signs - 24 hr 02/18/25 05:26 02/18/25 05:35 02/18/25 05:49 Temperature 97.7 F Pulse Rate 105 H Blood Pressure 123/59 L Oxygen Delivery Room Air 02/18/25 06:08 02/18/25 06:10 02/18/25 06:16 Temperature Pulse Rate 91 90 88 Blood Pressure 77/60 L 106/61 118/55 L Oxygen Delivery 02/18/25 06:31 Temperature Pulse Rate 88 Blood Pressure 112/65 Oxygen Delivery Exam Const: General: no acute distress Eyes: EOM: EOMs intact bilaterally Neck: Neck: supple Thyroid: thyroid normal Chest: Breast/axilla inspection: normal inspection of the breasts Breast/axilla palpation: normal palpation of the breasts, normal palpation of the axillae and no axillary lymphadenopathy Resp: Effort & Inspection: normal respiratory effort Auscultation: clear to auscultation bilaterally Cardio: Rate: regular rate Rhythm: regular rhythm GI: Inspection: non-distended and other (Gravid) GI Palp: Yes Soft to palpation, No Tenderness to palpation present (GI) and No Guarding due to palpation present (GI) Auscultation: normal bowel sounds : Speculum Exam - Vagina: No vaginal bleeding OB/external & speculum: external exam normal; No vaginal bleeding Skin: General skin exam: normal color and no rashes or lesions noted Neuro: Cognition (Neuro): normal cognition Speech: normal speech Extrem: General: normal to inspection Psych: Mental Status: mental status grossly normal Affect: normal affect H&P: Results Labs Labs: Short CBC 02/18/25 Range/Units 05:18 WBC 6.9 (4.5-10.0) K/mm3 Hgb 10.5 L (12.0-15.0) g/dL Hct 32.8 L (37.0-47.0) % Plt Count 223 (150-375) k/mm3 Assessment and Plan Assessment and plan (1) History of section complicating : Code(s): O34.219 - Maternal care for unspecified type scar from previous delivery Status: Acute Assessment and Plan: 34-year-old 004 at 39 weeks Prior x2 Admit for repeat at 39 weeks Rh negative, will need RhoGAM Hemoglobin 10.5 risks, benefits, alternatives discussed. (2) Normal intrauterine in third trimester: Code(s): Z34.93 - Encounter for supervision of normal , unspecified, third trimester Status: Acute
[2025-02-18] MEDS: ONDANSETRON INJ 4 MG/2 ML VIAL IV PUSH ×2 (07:06→12:26)
[2025-02-18 07:07] LABS: Syphilis IgG/IgM Antibody Non-Reactive (Nonreactive)
[2025-02-18] MEDS: FAMOTIDINE 20 MG/2 ML VIAL IV PUSH (07:07)
--- NOTE | 2025-02-18 08:40 | W.PM.OBCSD ---
OB - Delivery Note Procedure Delivery date: 02/18/25 Pre-op diagnosis: Previous Delivery Post-op Diagnosis: Same Induction method: None Delivery monitor: External FHT Prior to decision for section, ACOG/SMFM labor guidelines were considered and discussed with the patient and staff. Decision made to proceed with the section.: Yes Procedure Performed: Repeat Secondary branch: low cervical, transverse Surgeon: Rosales Negron MD Anesthesia type: Spinal Description of Procedure/Findings: The patient was taken to the operating room. A combined spinal epidural anesthesia was administered and found to be adequate at a t-10 level. The patient was placed in a supine position with a slight left lateral tilt. A terrazas catheter was placed with return of clear urine. A Bovie grounding pad was placed. Surgical prep was performed and surgical drapes were placed. A surgical time out was performed. A Pfannenstiel skin incision was then made with the scalpel and carried through to the underlying layer of fascia. The fascia was then incised in the midline and the incision was extended laterally with the Jiménez scissors. The superior aspect of the fascia was then grasped with the Arcenio clamps, elevated, and the underlying rectus muscles dissected off bluntly and sharply. Attention was then turned to the inferior aspect of this incision which, in a similar fashion, was grasped, tented up with the Arcenio clamps, and the rectus muscles dissected off both bluntly and sharply. The rectus muscles were then in the midline. The peritoneum was identified and entered bluntly. The peritoneal incision was then extended superiorly and inferiorly with good visualization of the bladder. A Mobius ring retractor was placed for better visualization. The vesico-uterine serosa was identified and dissected to create a bladder flap. during dissection, it was noted the lower uterine segment had a large uterine window. There was a thin layer of tissue with several areas of the amniotic membranes extruding through the uterus. Hysterotomy was made bluntly during dissection of the bladder flap. An amniotomy was made and copious amounts of clear fluid were noted on return. The uterine incision was extended laterally bluntly. The bladder blade was removed and the fetus was delivered atraumatically. A true knot x 1 was noted in the umbilical cord. The umbilical cord was clamped twice and cut. The infant was handed off to the waiting staff. At the time of the delivery, the had good color, tone and grimace. The infant cried with minimal stimulation. A second segment of umbilical cord was clamped and cut for cord blood gasses. Cord blood was collected for determination of the blood type and for direct Tripp. The placenta was delivered spontaneously without difficulty. The placenta appeared grossly normal and complete. The uterus was exteriorized and cleared of all clots and debris. The uterine incision was repaired using 0-monocryl suture in a running fashion. The uterine closure was inspected for hemostasis. The posterior aspect of the uterus and the broad ligaments were inspected and the posterior cul-de-sac cleared of fluid and blood clots. The uterine closure was again inspected and found to be hemostatic. The uterus was returned to the abdominal cavity. The pericolic gutters were inspected and were cleared of all blood clots and debris. The uterine closure was then re inspected to ensure hemostasis as were all subfascial tissues. The peritoneum was closed using 3-0 vicryl in a running fashion. The fascia was reapproximated with 0-vicryl in a running fashion. The subcutaneous tissue was irrigated and hemostasis achieved with electrocautery. It was reapproximated with 3-0 vicryl in a running fashion. The skin was closed with deepak. A sterile SHERI wound vac dressing was applied to the wound. The patient tolerated the procedure well. Sponge, lap and needle counts were correct times three. The patient was taken to recovery in stable condition and without anticipated complications. Specimen: No Estimated Blood Loss: 570 Drains: No Packing: No Complications: No immediate complications Condition: Stable Disposition: Floor [place] Baby Date of : 02/18/25 Infant gender: Male Weight (pounds): 10 Weight (ounces): 4 presentation: vertex Placenta delivery description: Manual Removal Cord Vessel Description: 3 Vessels and True Knot
[2025-02-18] MEDS: SIMETHICONE 80 MG TAB.CHEW PO ×3 (10:05→16:34)
--- NOTE | 2025-02-18 11:24 | OBPPTRN ---
Patient transferred to post room # 287 via bed. Support person present. Oriented to unit, room, information board, rooming in, admission packet and security measures. Patient verbalizes understanding.
[2025-02-18] MEDS: KETOROLAC 15 MG/ML VIAL (*BKC) IV PUSH ×2 (12:14→18:41)
[2025-02-18] MEDS: DEXTROSE 5%/0.45% SOD CHL 1,000 ML 125 ML IV CONT (12:14)
[2025-02-18] MEDS: MULTIVIT/MIN/PREN/FOL AC/IRON TABLET 1 TAB PO (12:15)
[2025-02-18] MEDS: DOCUSATE SODIUM 100 MG CAPSULE PO ×2 (12:15→16:34)
[2025-02-18] MEDS: LANOLIN (LANSINOH) 7.5 GM CREAM 1 APPLIC TOPICAL (12:35)
--- NOTE | 2025-02-18 13:00 | PC.NURSE ---
Breast pump provided to establish milk supply while is in Level 2 nursery. Mom does intend to put him to breast when able. Instructions given on cleaning, care, usage, that there should be no pain, pumping schedule for milk production, collection, and storage of human milk. Patient was instructed to pump for stimulation for adequate milk production every 3 hours (8 times in 24 hours) 1-2 times at night. She pumped with her previous children.?Mother voiced understanding of the education shared along with mom/baby guide for additional resource information. Reported to the Primary RN.
[2025-02-18] MEDS: LIDOCAINE 5% PATCH 1 PATCH TRANSDERM (19:50)
[2025-02-19] MEDS: ACETAMINOPHEN 500 MG TABLET 1000 MG PO ×4 (00:40→19:32)
[2025-02-19] MEDS: KETOROLAC 15 MG/ML VIAL (*BKC) IV PUSH (00:40)
[2025-02-19 04:20] VITALS: BP 109/58; PULSE 77; RESP 16; TEMP 36.6; O2SAT 100
[2025-02-19 05:01] LABS: Hematocrit 28.7 % (37.0-47.0); Hemoglobin 9.0 g/dL (12.0-15.0); Immature Granulocyte Percent A 1.0 % (0-0.5); Lymphocytes Absolute Auto 1.94 K/mm3 (0.9-3.2); Mean Corpuscular HGB Conc 31.4 g/dl (32-36); Mean Corpuscular Hemoglobin 30.8 pg (26-34); Mean Corpuscular Volume 98.3 fl (80-100); Nucleated Red Blood Cells Absolute Auto 0.000 K/mm3 (0.0-0.012); Nucleated Red Blood Cells Perc 0.0 % (0.0-0.2); Platelet Count Result 201 k/mm3 (150-375); Red Blood Count 2.92 M/mm3 (4.2-5.4); White Blood Count 8.8 K/mm3 (4.5-10.0)
[2025-02-19] MEDS: IBUPROFEN 600 MG TABLET PO ×3 (06:45→19:32)
--- NOTE | 2025-02-19 07:21 | P.PNOB_ITS ---
OB - PN: Subj Subjective Date/time seen: 02/19/25 07:21 Patient comments: no complaints, pain well controlled, tolerating diet and flatus present OB - PN: Obj Data Labs 02/19/25 04:40 Labs: Laboratory Results - last 24 hr 02/18/25 02/19/25 06:58 04:40 WBC 8.8 RBC 2.92 L Hgb 9.0 L Hct 28.7 L MCV 98.3 MCH 30.8 MCHC 31.4 L RDW 15.3 H Plt Count 201 MPV 11.1 H Immature Gran % (Auto) 1.0 H Neut % (Auto) 66.2 Lymph % (Auto) 22.1 [place] % (Auto) 9.2 H Eos % (Auto) 1.3 Baso % (Auto) 0.2 Lymph # (Auto) 1.94 [place] # (Auto) 0.8 H Eos # (Auto) 0.1 Baso # (Auto) 0.0 Abs Immat Gran (auto) 0.09 H Absolute Neuts (auto) 5.8 Absolute Nucleated RBC 0.000 Nucleated RBC % 0.0 Blood Type O Negative Antibody Screen Negative OB - PN A/P Plan day: 1 Plan: routine care Comments: patient doing well H/H 9., asymptomatic, continue iron supplementation afebrile, VSS incision covered with SHERI dressing terrazas removed, voiding spontaneously was transferred due to respiratory issues, will allow patient a pass to visit baby today continue routine post op care Time Spent With Patient Time: Total time spent is greater than 50% in coordination of care (as documented) at patient's floor/unit and/or counseling patient: Time with patient: less than 15 minutes Review of Systems 2 Constitutional: Constitutional: Reports no additional constitutional complaints Cardiovascular: Cardiovascular: Reports no additional cardiovascular complaints Respiratory: Respiratory: Reports no additional respiratory complaints Gastrointestinal: Gastrointestinal: Reports no additional gastrointestinal complaints Genitourinary: Genitourinary: Reports no additional female genitourinary complaints Exam 2 Const: General: comfortable and no acute distress Resp: Effort & Inspection: normal respiratory effort Auscultation: clear to auscultation bilaterally Cardio: Rate: regular rate GI: GI Palp: Yes Soft to palpation, Yes Tenderness to palpation present (GI) (around incision ) and No Guarding due to palpation present (GI) A uscultation: normal bowel sounds Other: incision C/D/I, covered with Dermabond Psych: Appearance: grossly normal Mental Status: mental status grossly normal Affect: normal affect
[2025-02-19 07:59] VITALS: BP 129/55; PULSE 53; RESP 18; TEMP 36.6; O2SAT 97
[2025-02-19] MEDS: MULTIVIT/MIN/PREN/FOL AC/IRON TABLET 1 TAB PO (09:40)
[2025-02-19] MEDS: SIMETHICONE 80 MG TAB.CHEW PO ×3 (09:40→21:33)
[2025-02-19] MEDS: DOCUSATE SODIUM 100 MG CAPSULE PO ×2 (09:40→19:32)
[2025-02-19] MEDS: oxyCODONE HCL (*CRX) 5 MG TAB IR PO ×2 (13:00→21:39)
--- NOTE | 2025-02-19 13:13 | PC.NURSE ---
Patient left on day to visit baby at NICU per Dr Darden orders. Patient signed release and understands that she is to report back to the unit by 1900.
--- NOTE | 2025-02-19 14:46 | WPDANESPN ---
Anes - Prog Note Post-Op Date/Time: 02/19/25 14:46 Cardiovascular status: normal Respiratory status: normal Airway patency: baseline Mental status: baseline Post-Op hydration status: normal Vital Signs: Last Vital Signs Temp 36.6 C 02/19/25 07:59 Pulse 53 L 02/19/25 07:59 Resp 18 02/19/25 07:59 BP 129/55 L 02/19/25 07:59 Pulse Ox 97 02/19/25 07:59 O2 Del Method Room Air 02/19/25 08:00 Pain Score (VAS): 08/13 I/O: Intake & Output 02/18/25 02/19/25 02/19/25 23:59 07:59 15:59 Intake Total 2140 Output Total 1850 1550 400 Balance 290 -1550 -400 Laboratory Tests 02/19/25 04:40 02/19/25 02/19/25 04:40 09:37 WBC 8.8 RBC 2.92 L Hgb 9.0 L Hct 28.7 L MCV 98.3 MCH 30.8 MCHC 31.4 L RDW 15.3 H Plt Count 201 MPV 11.1 H Immature Gran % (Auto) 1.0 H Neut % (Auto) 66.2 Lymph % (Auto) 22.1 [place] % (Auto) 9.2 H Eos % (Auto) 1.3 Baso % (Auto) 0.2 Lymph # (Auto) 1.94 [place] # (Auto) 0.8 H Eos # (Auto) 0.1 Baso # (Auto) 0.0 Abs Immat Gran (auto) 0.09 H Absolute Neuts (auto) 5.8 Absolute Nucleated RBC 0.000 Nucleated RBC % 0.0 Blood Type O Negative Antibody Screen Negative Screen Negative Baby's Blood Type O pos Baby's BARRY Negative Doses of RhIg Required 1 Post-procedural complaints: none Patient Feedback: Patient satisfied with anesthetic care.
--- NOTE | 2025-02-19 19:49 | PC.NURSE ---
02/19/2025 at 1924 Patient returned with her significant other from visiting baby. Rosalind states baby is doing well. Medications given at this time. Patient is sitting up in bed eating her salad with her significant other. I kindly asked Rosalind to call out when she is finished so I can do her assessment. Rosalind states understanding.
[2025-02-19 20:25] VITALS: BP 126/69; PULSE 74; RESP 16; TEMP 36.4; O2SAT 100
[2025-02-19] MEDS: RHO(D) IMMUNE GLOBULIN 300 MCG/2 ML SYRINGE IM (21:30)
[2025-02-19] MEDS: LIDOCAINE 5% PATCH 1 PATCH TRANSDERM (21:34)
[2025-02-20] MEDS: oxyCODONE HCL (*CRX) 5 MG TAB IR PO ×2 (04:54→11:30)
[2025-02-20] MEDS: ACETAMINOPHEN 500 MG TABLET 1000 MG PO ×2 (04:54→11:30)
[2025-02-20] MEDS: IBUPROFEN 600 MG TABLET PO ×2 (04:54→11:30)
--- NOTE | 2025-02-20 07:12 | P.DS_ITS ---
DS: Admitting Diagnosis Discharge Date 02/20/25 Admitting Diagnosis Intrauterine at term prior DS: Discharge Diagnosis Discharge Diagnosis (1) delivery delivered: Code(s): O82 - Encounter for delivery without indication Status: Acute OB - DS: Summary OB Procedures : None OB Procedures Intrapartum: OB Procedures: : None Peripartum Data Infant Delivery Method: Section Procedures: Procedures Operation Date: 02/18/25 07:30 Actual Procedure Side Surgeon p Section Rosales Negron MD complications: none Status at Discharge Functional status at discharge: independent ambulation Overall status at discharge: patient is progressing back to baseline Time Spent with Patient Time attestation: Total time spent providing and/or coordinating discharge services: Time spent: Less than 30 minutes Exam Const: General: comfortable and no acute distress Resp: Effort & Inspection: normal respiratory effort Auscultation: clear to auscultation bilaterally Cardio: Rate: regular rate GI: Inspection: non-distended GI Palp: Yes Soft to palpation, No Firmness to palpation present (GI), Yes Tenderness to palpation present (GI) (mild tenderness over incision ) and No Guarding due to palpation present (GI) Auscultation: normal bowel sounds Psych: Appearance: grossly normal Mental Status: mental status grossly normal DS: Data Data Completed and Pending Labs on day of discharge: Labs from last 24 hours 02/19/25 09:37 Blood Type O Negative Antibody Screen Negative Screen Negative Baby's Blood Type O pos Baby's BARRY Negative Doses of RhIg Required 1 Discharge Plan Discharge Discharging Clinician: Rosales Negron Patient Disposition: Home Activity: as tolerated and pelvic rest Diet: regular Discharge Instructions: FEEDING PLAN: You are exclusively pumping at discharge. It is important to pump regularly and consistently to help initiate your milk supply. Regular milk removal is necessary for continued milk production. You need to pump at least 8 times every 24 hours. You can use hands on pumping to get better results with pumping and to encourage your breasts to produce more milk. Hands on pumping instructions: 1.? Massage your breasts before applying the breast pump. 2.? Pump both breasts at once. Use your hands to massage and compress while you pump. 3.? Stop pumping when the milk stops flowing 4.? Massage your breasts again 5.? End the pumping session by pumping or hand expressing one breast at a time while massaging and compressing your breast. Go back and forth between each breast until the milk stops flowing. 6.? Allow 25 minutes to complete this routine ? It is important to be sure you have a well-fitted pump flange. Consult your pump manual for recommended flange sizing or consult a professional. YOU SHOULD SET YOUR PUMP TO THE HIGHEST COMFORTABLE LEVEL. INCREASE THE SUCTION GRADUALLY UNTIL YOU REACH THE CORRECT SETTING. PUMPING SHOULD NOT HURT. CONSULT YOUR PUMP MANUAL FOR GUIDANCE ON PUMP SETTINGS AND FUNCTIONS. MOST PUMPS RECOMMEND 1-2 MINUTES OF THE QUICK ?MASSAGE? MODE, THEN SWITCHING TO THE SLOWER ?EXPRESSION? MODE FOR THE REMAINDER OF THE PUMPING SESSION. Pump each breast for 10-15 minutes. Pumping will help stimulate your breasts to produce milk. ?Follow the collection and storage sheet given to you in the Mom and Baby Guide. Remember to keep track of all feedings/elimination on the blue worksheet provided. Clean your pump parts between each pumping session according to the guidelines in your pump manual. It is recommended that you use a basin that is reserved for washing pump parts that is separate from your sink to prevent contamination. If you are pumping for an ill or , you should disinfect your pump parts once a day by boiling them in hot water for 5 minutes after cleaning. Ways to increase your milk supply: ? Increase frequency of pumping (10-12 times every 24 hours) ? Lots of skin to skin (if infant is able), especially before pumping ? Use warm washcloths before pumping and gentle breast massage before and during pumping ? Reduce stress, relax with music, get plenty of rest, and drink to thirst ? Warm pump flanges with warm water before pumping ? Pump until the milk stops flowing, then pump for 2 more minutes to fully empty the breast ? Pump at least once through the night, milk shouldn't remain in the breast for longer than 4 hours ? Power pumping: Pump for 15-20 minutes, rest for 10 minutes, pump for 10, rest for 10, pump for 10. Do this routine 1-2 times a day for several days or until you notice an increase in milk supply. Pump normally between power pumping sessions. You may contact the Team at [phone] for questions and appointments. Patient Instructions: Antibiotic Form, (DC) Patient Language: Marshallese Stand Alone Forms: General Discharge Information Follow-up/Referrals: Rosales Negron MD [Physician] - 1 Week (staple and dressing removal) Discharge Medications: New oxycodone-acetaminophen 5-325 mg tablet 1 tablet PO Q6H PRN (Reason: pain) Qty: 28 0RF sennosides-docusate sodium [Senna with Docusate Sodium] 8.6-50 mg tablet 1 tab-cap PO HS Qty: 60 0RF ibuprofen 600 mg tablet 600 mg PO Q6H PRN (Reason: pain) Qty: 30 0RF ferrous sulfate 325 mg (65 mg iron) tablet 325 mg PO BID Qty: 90 0RF Continued Classic 28 mg iron- 800 mcg tablet 1 tablet PO DAILY Azo Cranberry Plus Probiotic 250-30-15 mg tablet PO Date of admission: 02/18/25 05:10 Primary Care Provider: Demarco Bennett Admitting Provider: Rosales Negron Attending physician on admission: Rosales Negron Condition: Stable
[2025-02-20 09:30] VITALS: BP 130/76; PULSE 80; RESP 18; TEMP 36.4; O2SAT 99
[2025-02-20] MEDS: SIMETHICONE 80 MG TAB.CHEW PO (09:34)
[2025-02-20] MEDS: DOCUSATE SODIUM 100 MG CAPSULE PO (09:34)
[2025-02-20] MEDS: MULTIVIT/MIN/PREN/FOL AC/IRON TABLET 1 TAB PO (09:35)
--- NOTE | 2025-02-20 11:31 | PC.NURSE ---
Removed and replaced patients SHERI dressing per order from Dr Negron. Dressing was dry and intact with several spots of old dark red discharge noted. Inscision was clean, dry, and 13 deepak were intact. New dressing was applied, sealed, and pump registered seal as OK
== END 2025-02-20 13:00 | disposition home or self-care (01) | DRG 540 ==
LOC: ANHLDR 05:18 → ANHOB2 11:27
PROVIDERS: Admitting Provider Student in an Organized Health Care Education/Training Program; PCP Family Medicine; Visit Provider Student in an Organized Health Care Education/Training Program
PROC: 10D00Z1 Extraction of Products of Conception, Low, Open Approach (ICD-10-PCS; CPT 59514; principal; 2025-02-18 07:30)
DX: O34.219 Maternal care for unspecified type scar from previous cesarean delivery (principal); Z3A.39 39 weeks gestation of pregnancy; Z37.0 Single live birth; Z67.91 Unspecified blood type, Rh negative
CPT/HCPCS: 36415; 85025; 85461; 86593; 86850; 86900; 86901; 90384; A9270; J1100; J1596; J1885; J2274; J2371; J2405; J2590; J2790; J7120